=== PATIENT | male | born 1965 | race Two or more races ===

== ENCOUNTER 2016-11-11 11:31 | Inpatient (IN) | payer MEDICARE, MEDICAID ==
[~2016-11-11] VITALS: Ht 165.1 cm; Wt 61.2 kg
[~2016-11-11 11:31] MED LIST: ACETAMINOPHEN-1 EAC2 ORAL; ACETAMINOPHEN325 M1 ORAL; AUGMENTIN 875-1 EAC1 ORAL; BACTRIM DS TAB1 EAC1 ORAL; CEFAZOLIN2 GM/20 ML IV; CEPHALEXIN500 MG ORAL; FLAGYL500 MG ORAL; LEVEMIR FL100 UNIT/1 SUBQ; LIPITOR10 MG ORAL; LIPITOR20 MG ORAL; MIRALAX17 G2 ORAL; NORCO 5-325 TA1 EACH ORAL; NOVOLIN 70/305 UNIT1 SUBQ; NOVOLOG100 UNITS1; RESTORIL15 MG ORAL; RIFAMPIN150 MG ORAL; ROCEPHIN250 MG IV
[2016-11-11 11:40] VITALS: BP 116/77
[2016-11-11] MEDS ORDERED: Clindamycin 600mg 50 ML IVPB ONE (12:00)
[2016-11-11 12:27] LABS: BASOPHILS % (AUTO) 1.5 % (0.0-2.0); EOSINOPHILS % (AUTO) 1.3 % (0.0-3.0); MEAN CORPUSCULAR HEMOGLOBIN 29.9 PG (27.0-31.0); MEAN CORPUSCULAR HGB CONC 32.1 G/DL (32.0-36.0); MEAN CORPUSCULAR VOLUME 93 FL (80-99); MEAN PLATELET VOLUME 6.8 FL (6.5-10.1); MONOCYTES % (AUTO) 8.4 % (1.0-10.0); NEUTROPHILS % (AUTO) 70.7 % (45.0-75.0); PLATELET COUNT 238 K/UL (150-450); RED BLOOD COUNT 3.53 M/UL (4.70-6.10); RED CELL DISTRIBUTION WIDTH 12.4 % (11.6-14.8); WHITE BLOOD COUNT 7.2 K/UL (4.8-10.8)
--- NOTE | 2016-11-11 12:30 | Emergency Room Report ---
History of Present Illness General Chief Complaint: Skin Rash/Abscess Source: Patient Present Illness HPI Patient presents with complaints of redness and infection to the right foot Patient is a diabetic and has had previous intervention Including podiatry and surgery He felt the area increasing with pain 8/10 Patient also reports fevers over the past night Denies any chest pain or shortness of breath denies any back or flank pain denies any dysuria frequency Pain is worse with ambulation Allergies: Coded Allergies: VANCOMYCIN (Verified Allergy, Unknown, 11/12/16) Patient History Past Medical History: see triage record Pertinent Family History: none Reviewed Nursing Documentation: PMH: Agreed, PSxH: Agreed Nursing Documentation-PMH Past Medical History: No History, Except For Hx Cardiac Problems: Yes - high cholesterol Hx Pacemaker: No - RT FOOT ULCER Hx Diabetes: Yes Hx Cancer: No Hx Gastrointestinal Problems: Yes Hx Neurological Problems: No Hx Headaches: Yes Review of Systems All Other Systems: negative except mentioned in HPI Physical Exam Vital Signs Date Time Temp Pulse Resp B/P Pulse Ox O2 Delivery O2 Flow Rate FiO2 11/11/16 11:35 98.1 83 15 139/89 98 Room Air Sp02 EP Interpretation: reviewed, normal General Appearance: well appearing, no apparent distress Head: normocephalic, atraumatic Eyes: bilateral eye EOMI, bilateral eye PERRL ENT: hearing grossly normal, normal pharynx, TMs + canals normal, uvula midline Neck: full range of motion, supple, no meningismus, no bony tend Respiratory: lungs clear, normal breath sounds, no rhonchi, no respiratory distress, no retraction, no accessory muscle use Cardiovascular #1: normal peripheral pulses, regular rate, rhythm, no edema, no gallop, no JVD, no murmur Gastrointestinal: normal bowel sounds, non tender, soft, no mass, no organomegaly, non-distended, no guarding, no hernia, no pulsatile mass, no rebound Genitourinary: no CVA tenderness Musculoskeletal: other - Erythema and fluctuance in the right outside part of the foot no obvious open wound however there was some minimal discharge noted, patient is neurovascularly intact, Neurologic: oriented x3, responsive, synthetic cloth binding cutter III-XII nml as tested, motor strength/ tone normal, sensory intact Psychiatric: mood/affect normal Skin: other - As above Lymphatic: normal inspection, no adenopathy Medical Decision Making Diagnostic Impression: Primary Impression: Hyperglycemia Additional Impressions: Diabetic foot ulcer Poorly controlled diabetes mellitus ER Course Given the patient's history examined the presentation given the concerning findings of the foot and the patient's history of diabetes extensive blood work was initiated Patient had IV antibiotics provided IV hydration And requires admission for further care Labs Test 11/11/16 12:10 11/11/16 13:10 White Blood Count 7.2 K/UL (4.8-10.8) Red Blood Count 3.53 M/UL (4.70-6.10) Hemoglobin 10.6 G/DL (14.2-18.0) Hematocrit 32.9 % (42.0-52.0) Mean Corpuscular Volume 93 FL (80-99) Mean Corpuscular Hemoglobin 29.9 PG (27.0-31.0) Mean Corpuscular Hemoglobin Concent 32.1 G/DL (32.0-36.0) Red Cell Distribution Width 12.4 % (11.6-14.8) Platelet Count 238 K/UL (150-450) Mean Platelet Volume 6.8 FL (6.5-10.1) Neutrophils (%) (Auto) 70.7 % (45.0-75.0) Lymphocytes (%) (Auto) 18.0 % (20.0-45.0) Monocytes (%) (Auto) 8.4 % (1.0-10.0) Eosinophils (%) (Auto) 1.3 % (0.0-3.0) Basophils (%) (Auto) 1.5 % (0.0-2.0) Sodium Level 130 mEQ/L (135-145) Potassium Level 4.6 mEQ/L (3.4-4.9) Chloride Level 90 mEQ/L (98-107) Carbon Dioxide Level 22 mEQ/L (20-30) Anion Gap 18 (5-15) Blood Urea Nitrogen 35 mg/dL (7-23) Creatinine 2.3 mg/dL (0.7-1.2) Estimat Glomerular Filtration Rate 30.0 mL/min (>60) Glucose Level 536 mg/dL (74-106) Lactic Acid Level 2.00 mmol/L (0.66-2.22) 1.90 mmol/L (0.66-2.22) Calcium Level 10.1 mg/dL (8.6-10.2) Total Bilirubin 0.6 mg/dL (0.0-1.2) Aspartate Amino Transf (AST/SGOT) 19 U/L (5-40) Alanine Aminotransferase (ALT/SGPT) 19 U/L (3-41) Alkaline Phosphatase 140 U/L (40-129) Total Creatine Kinase 115 U/L (38-174) Creatine Kinase MB 2.2 ng/mL (< 6.7) Creatine Kinase MB Relative Index 1.9 Total Protein 8.3 g/dL (6.6-8.7) Albumin 4.6 g/dL (3.5-5.2) Globulin 3.7 g/dL Albumin/Globulin Ratio 1.2 (1.0-2.7) Rhythm Strip Diag. Results EP Interpretation: yes Rate: 88 Rhythm: NSR, no PVC's, no ectopy Other X-Ray Diagnostic Results Other X-Ray Diagnostic Results : EP Interpretation: Yes Findings: no fractures, no dislocation, other - Soft tissue changes, severe arthritic changes to the surgery no obvious evidence of osteomylitis Number of Views: 2 - right foot Last Vital Signs Date Time Temp Pulse Resp B/P Pulse Ox O2 Delivery O2 Flow Rate FiO2 11/11/16 11:40 98.0 86 13 116/77 100 Room Air Status: improved Disposition: ADMITTED INPATIENT Condition: Serious Referrals: NON PHYSICIAN (PCP) DION MONROY D.O. Nov 11, 2016 12:30
[2016-11-11 12:35] LABS: ALBUMIN/GLOBULIN RATIO 1.2 (1.0-2.7); CALCIUM 10.1 mg/dL (8.6-10.2); CREATININE 2.3 mg/dL (0.7-1.2); POTASSIUM 4.6 mEQ/L (3.4-4.9); TOTAL PROTEIN 8.3 g/dL (6.6-8.7)
[2016-11-11 12:37] LABS: REFLEX LACTIC ACID YES OR NO YES
[2016-11-11 12:45] LABS: CKMB 2.2 ng/mL (< 6.7)
[2016-11-11] MEDS ORDERED: NOVOLIN 70100 UNIT/1 SUBQ ×2 (13:04)
[2016-11-11 13:15] VITALS: BP 87/63
[2016-11-11] MEDS ORDERED: Morphine Sulfate 2mg/ml Inj IVP ONE (13:30)
[2016-11-11] MEDS ORDERED: Mylanta II UD 30ml ORAL PRN (13:30)
[2016-11-11] MEDS ORDERED: LORazepam Inj 2mg/ml 1ml IV PRN (13:30)
[2016-11-11 14:01] VITALS: BP 99/65
[2016-11-11 14:13] VITALS: BP 106/76
--- NOTE | 2016-11-11 14:41 | Diagnostic Imaging Report ---
Indication: No definite plain Technique: 3 or 4 views right foot Comparison: none Findings: Patient is status post amputation of the first digit at the level of the metatarsal neck. The second third and fourth digits are intact, although there is some remodeling of the base of the third proximal phalanx which may be degenerative in nature. Patient is status post osteotomy of the fifth metatarsal distally, with the phalanges still intact. The amputation margins appear clean. No acute fractures. No definite lesions, abnormal periosteal reaction, or osseous erosions. A medullary javier extends from the tibia through the talus and into the calcaneus. There is severe hammertoe deformity of the second third and fourth digits, which limits assessment, particularly of the second digit. Impression: Postsurgical changes, as described No definite plain radiographic findings to suggest acute osteomyelitis. Note, however, limited sensitivity of plain radiograph for such. Consider MRI or bone scan if there is a clinical suspicion No acute bony trauma
[2016-11-11 14:49] LABS: MAGNESIUM 1.9 mg/dL (1.7-2.5); URIC ACID 6.9 mg/dL (3.0-7.5)
[2016-11-11] MEDS: Cefepime HCl 1 GM in D5W 55 ML IV SCH (15:26)
--- NOTE | 2016-11-11 15:34 | History and Physical ---
History of Present Illness General Date patient seen: Nov 11, 2016 Reason for Hospitalization: Skin Rash/Abscess Present Illness HPI 51 year old male with hx of DM, HTN, diabetic foot ulcer with previous surgeries presented with complaints of redness and infection to the right foot Patient also reports fevers over the past night. The Pain is worse with ambulation Allergies: Coded Allergies: No Known Allergies (Verified , 04/05/09) Medication History Scheduled Amoxicillin/Potassium Clav 875-125* (Augmentin 875-125 Tablet*), 1 TAB ORAL TWICE A DAY, (Reported) Atorvastatin Calcium* (Lipitor*), 20 MG ORAL QHS Ceftriaxone Sod (Rocephin), 2 GM IV DAILY Hum Insulin Nph/Reg Insulin Hm (Novolin 70-30 100 Unit/Ml Vial), 15 UNITS SUBQ DAILY, (Reported) Hum Insulin Nph/Reg Insulin Hm (Novolin 70-30 100 Unit/Ml Vial), 10 UNITS SUBQ BEDTIME, (Reported) Insulin Aspart (Novolog Flexpen), 7 ACHS, (Reported) Insulin Detemir (Levemir Flexpen), 24 SUBQ DAILY, (Reported) Insulin Detemir (Levemir Flexpen), 9 UNITS SUBQ QHS Insulin Human Isophan/Regular (Humulin 70-30 Vial), 20 UNITS SUBQ BEFORE BREAKFAST, (Reported) Insulin Human Isophan/Regular (Humulin 70-30 Vial), 10 UNITS SUBQ QPM, (Reported ) Metronidazole* (Flagyl*), 500 MG ORAL THREE TIMES A DAY, (Reported) Rifampin (Rifampin), 300 MG ORAL EVERY 12 HOURS Trimethoprim/Sulfamethoxazole 160/800* (Bactrim Ds Tablet*), 1 TAB ORAL TWICE A DAY Scheduled PRN Acetaminophen With Codeine (T#4) (Tylenol #4 Tab*), 1 TAB ORAL Q6H PRN for For Pain Patient History Healthcare decision maker Resuscitation status Advanced Directive on File Past Medical/Surgical History Past Medical/Surgical History: (1) Sepsis (2) Cellulitis in diabetic foot (3) Diabetic nephropathy (4) Renal insufficiency Review of Systems Constitutional: Reports: fever All Other Systems: negative except mentioned in HPI Physical Exam General Appearance: WD/WN, no apparent distress Lines, tubes and drains: peripheral, central line Neck: non-tender, normal alignment Respiratory/Chest: chest wall non-tender, lungs clear Cardiovascular/Chest: normal peripheral pulses, normal rate, no JVD Abdomen: normal bowel sounds Genitourinary/Rectal: normal genital exam Extremities: normal range of motion Skin Exam: normal pigmentation Last 24 Hour Vital Signs Date Time Temp Pulse Resp B/P Pulse Ox O2 Delivery O2 Flow Rate FiO2 11/11/16 14:28 80 12 107/73 100 Room Air 11/11/16 14:13 80 12 106/76 100 Room Air 11/11/16 14:01 79 12 99/65 100 Room Air 11/11/16 13:15 79 12 87/63 99 Room Air 11/11/16 11:40 98.0 86 13 116/77 100 Room Air 11/11/16 11:35 98.1 83 15 139/89 98 Room Air Laboratory Tests Test 11/11/16 12:10 11/11/16 13:10 White Blood Count 7.2 K/UL (4.8-10.8) Red Blood Count 3.53 M/UL (4.70-6.10) L Hemoglobin 10.6 G/DL (14.2-18.0) L Hematocrit 32.9 % (42.0-52.0) L Mean Corpuscular Volume 93 FL (80-99) Mean Corpuscular Hemoglobin 29.9 PG (27.0-31.0) Mean Corpuscular Hemoglobin Concent 32.1 G/DL (32.0-36.0) Red Cell Distribution Width 12.4 % (11.6-14.8) Platelet Count 238 K/UL (150-450) Mean Platelet Volume 6.8 FL (6.5-10.1) Neutrophils (%) (Auto) 70.7 % (45.0-75.0) Lymphocytes (%) (Auto) 18.0 % (20.0-45.0) L Monocytes (%) (Auto) 8.4 % (1.0-10.0) Eosinophils (%) (Auto) 1.3 % (0.0-3.0) Basophils (%) (Auto) 1.5 % (0.0-2.0) Sodium Level 130 mEQ/L (135-145) L Potassium Level 4.6 mEQ/L (3.4-4.9) Chloride Level 90 mEQ/L (98-107) L Carbon Dioxide Level 22 mEQ/L (20-30) Anion Gap 18 (5-15) H Blood Urea Nitrogen 35 mg/dL (7-23) H Creatinine 2.3 mg/dL (0.7-1.2) H Estimat Glomerular Filtration Rate 30.0 mL/min (>60) Glucose Level 536 mg/dL (74-106) *H Lactic Acid Level 2.00 mmol/L (0.66-2.22) 1.90 mmol/L (0.66-2.22) Uric Acid 6.9 mg/dL (3.0-7.5) Calcium Level 10.1 mg/dL (8.6-10.2) Phosphorus Level 4.0 mg/dL (2.5-4.8) Magnesium Level 1.9 mg/dL (1.7-2.5) Total Bilirubin 0.6 mg/dL (0.0-1.2) Aspartate Amino Transf (AST/SGOT) 19 U/L (5-40) Alanine Aminotransferase (ALT/SGPT) 19 U/L (3-41) Alkaline Phosphatase 140 U/L (40-129) H Total Creatine Kinase 115 U/L (38-174) Creatine Kinase MB 2.2 ng/mL (< 6.7) Creatine Kinase MB Relative Index 1.9 Total Protein 8.3 g/dL (6.6-8.7) Albumin 4.6 g/dL (3.5-5.2) Globulin 3.7 g/dL Albumin/Globulin Ratio 1.2 (1.0-2.7) Free Thyroxine 1.25 ng/dL (0.86-1.85) Height (Feet): 5 Height (Inches): 5.00 Weight (Pounds): 135 Medications Current Medications Medications (Trade) Dose Ordered Sig/Julian Route PRN Reason Start Time Stop Time Status Last Admin Dose Admin Acetaminophen (Tylenol) 650 mg Q4H PRN ORAL T>100.5 11/11/16 13:30 12/11/16 13:29 Al Hydroxide/Mg Hydroxide (Mylanta II) 30 ml Q6H PRN ORAL dyspepsia 11/11/16 13:30 12/11/16 13:29 Atorvastatin Calcium (Lipitor) 20 mg BEDTIME ORAL 11/11/16 21:00 12/11/16 20:59 Cefepime HCl/ Dextrose (Maxipime/D5W) 55 ml @ 110 mls/hr Q24H IV 11/11/16 15:00 11/18/16 14:59 Dextrose STAT PRN IV Hypoglycemia 11/11/16 13:30 12/11/16 13:29 Heparin Sodium (Porcine) (Heparin 5000 units/ml) 5,000 units EVERY 12 HOURS SUBQ 11/11/16 21:00 12/11/16 20:59 Insulin Aspart (NovoLOG) BEFORE MEALS AND HS SUBQ 11/11/16 16:30 12/11/16 16:29 Lorazepam (Ativan 2mg/ml 1ml) 0.5 mg Q4H PRN IV For Anxiety 11/11/16 13:30 11/18/16 13:29 Metronidazole (Flagyl) 500 mg Q8HR ORAL 11/11/16 14:00 11/18/16 13:59 Morphine Sulfate (Morphine Sulfate) 1 mg Q4H PRN IVP PAIN 4-10 11/11/16 13:30 11/18/16 13:29 Ondansetron HCl (Zofran) 4 mg Q6H PRN IVP Nausea & Vomiting 11/11/16 13:30 12/11/16 13:29 Polyethylene Glycol (Miralax) 17 gm HSPRN PRN ORAL Constipation 11/11/16 21:00 12/11/16 20:59 Rifampin (Rifadin) 300 mg EVERY 12 HOURS ORAL 11/11/16 21:00 12/11/16 20:59 Vancomycin HCl 1 ea 1 ea DAILY PRN MISC Per rx protocol 11/11/16 13:30 12/11/16 13:29 Vancomycin HCl/ Dextrose (Vancomycin/D5W) 275 ml @ 183.333 mls/hr ONCE ONCE IVPB 11/11/16 16:00 11/11/16 17:29 Zolpidem Tartrate (Ambien) 5 mg HSPRN PRN ORAL Insomnia 11/11/16 21:00 12/11/16 20:59 Assessment/Plan Problem List: (1) Sepsis ICD Codes: A41.9 - Sepsis SNOMED: 06254971 (2) Cellulitis in diabetic foot ICD Codes: E13.628 - Cellulitis in diabetic foot; L03.119 - Cellulitis of unspecified part of limb SNOMED: 23660983 (3) Diabetic nephropathy ICD Codes: E11.29 - Diabetic nephropathy SNOMED: 018179222 Assessment/Plan IV antibiotics Podiatry consult ID consult abx sliding scale diabetic diet PAM QUEEN Nov 11, 2016 15:34
[2016-11-11] MEDS ORDERED: Vancomycin 1250mg/D5W 275ml IVPB ONE ×2 (16:00)
[2016-11-11 16:15] VITALS: BP 100/71
[2016-11-11] MEDS: NovoLOG Insulin Flexpen SUBQ SCH ×2 (16:38→22:31)
--- NOTE | 2016-11-11 16:43 | Diagnostic Imaging Report ---
Indication: Abnormal renal function tests Technique: Grayscale and duplex images of the kidneys, retroperitoneum, and bladder were obtained. Comparison:03/10/2016 Findings: Right kidney measures 9.7 cm in length. Left kidney measures 10.1 cm in length. Both kidneys demonstrate normal echogenicity. No hydronephrosis. No focal abnormality. Normal inferior vena cava. Bladder is normal. No significant interim change Impression: negative.
[2016-11-11] MEDS: metroNIDAZOLE 500mg tab ORAL SCH ×2 (16:59→22:26)
--- NOTE | 2016-11-11 17:33 | Consultation ---
Consult Note Assessment/Plan Id Dic # [id number] ASSESSMENT: 51 y/o male with: // Recurrent right foot DFU / osteomyelitis SP I& D podiatry, hx of WCx MSSA, GFS, ( Yeast :Colonizer ). 3P bone scan: acute osteomyelitis involving the area of the fifth metatarsal head. // Hx of MSSA bacteremia due Rt ankle abscess ( clinically no evidence of infection ) - h/o ORIF // Afebrile without leukocytosis // h/o possible splenic vein thrombosis // TOMASZ - resolved // Uncontrolled DM - HbA1c 10.4% // Elevated CRP // Bilateral non-obstructive nephrolithiasis // ? Allergy to Vanco ( pt has sever itching ) // Full Code PLAN: - Cont on Cefepime, Dapto d# 1. - weekly CBC, CMP, ESR, CRP while on IV ABX - PICC line before DC - f/u final cultures ( Bl, Wnd ) - monitor CBC, temperatures - monitor BMP - wound care, HBO CHATO ROGERS M.D. Nov 11, 2016 17:32
--- NOTE | 2016-11-11 19:01 | Consultation ---
Consult Note Consult Note PODIATRY CONSULT DATE: 11/11/16 COVERING FOR: Willy Arreola DPM REASON FOR CONSULT: Right foot wound HISTORY OF PRESENT ILLNESS: Patient states that he noticed some drainage on his sock one day ago and presented to the emergency room. Patient states no nausea, vomiting, fevers, or chills prior to admission. However, he states he was given a medication today that caused vomiting. He uses custom diabetic shoes. PAST MEDICAL HISTORY: CKD, T2DM with peripheral neuropathy, HTN SOCIAL HISTORY: Denies tobacco and illicit leatha use. Reports occasional alcohol use FAMILY HISTORY: Non contributory SURGICAL HISTORY: Right hallux amputation and right 5th metatarsal head resection Allergies: Coded Allergies: No Known Allergies (Verified , 04/05/09) Objective Objective Exam Last 24 Hour Vital Signs Date Time Temp Pulse Resp B/P Pulse Ox O2 Delivery O2 Flow Rate FiO2 11/11/16 16:15 98.4 84 21 100/71 97 Room Air 11/11/16 14:28 80 12 107/73 100 Room Air 11/11/16 14:13 80 12 106/76 100 Room Air 11/11/16 14:01 79 12 99/65 100 Room Air 11/11/16 13:15 79 12 87/63 99 Room Air 11/11/16 11:40 98.0 86 13 116/77 100 Room Air 11/11/16 11:35 98.1 83 15 139/89 98 Room Air Laboratory Tests Test 11/11/16 12:10 11/11/16 13:10 11/11/16 18:00 White Blood Count 7.2 K/UL (4.8-10.8) Red Blood Count 3.53 M/UL (4.70-6.10) L Hemoglobin 10.6 G/DL (14.2-18.0) L Hematocrit 32.9 % (42.0-52.0) L Mean Corpuscular Volume 93 FL (80-99) Mean Corpuscular Hemoglobin 29.9 PG (27.0-31.0) Mean Corpuscular Hemoglobin Concent 32.1 G/DL (32.0-36.0) Red Cell Distribution Width 12.4 % (11.6-14.8) Platelet Count 238 K/UL (150-450) Mean Platelet Volume 6.8 FL (6.5-10.1) Neutrophils (%) (Auto) 70.7 % (45.0-75.0) Lymphocytes (%) (Auto) 18.0 % (20.0-45.0) L Monocytes (%) (Auto) 8.4 % (1.0-10.0) Eosinophils (%) (Auto) 1.3 % (0.0-3.0) Basophils (%) (Auto) 1.5 % (0.0-2.0) Sodium Level 130 mEQ/L (135-145) L Potassium Level 4.6 mEQ/L (3.4-4.9) Chloride Level 90 mEQ/L (98-107) L Carbon Dioxide Level 22 mEQ/L (20-30) Anion Gap 18 (5-15) H Blood Urea Nitrogen 35 mg/dL (7-23) H Creatinine 2.3 mg/dL (0.7-1.2) H Estimat Glomerular Filtration Rate 30.0 mL/min (>60) Glucose Level 536 mg/dL (74-106) *H Lactic Acid Level 2.00 mmol/L (0.66-2.22) 1.90 mmol/L (0.66-2.22) Uric Acid 6.9 mg/dL (3.0-7.5) Calcium Level 10.1 mg/dL (8.6-10.2) Phosphorus Level 4.0 mg/dL (2.5-4.8) Magnesium Level 1.9 mg/dL (1.7-2.5) Total Bilirubin 0.6 mg/dL (0.0-1.2) Aspartate Amino Transf (AST/SGOT) 19 U/L (5-40) Alanine Aminotransferase (ALT/SGPT) 19 U/L (3-41) Alkaline Phosphatase 140 U/L (40-129) H Total Creatine Kinase 115 U/L (38-174) Creatine Kinase MB 2.2 ng/mL (< 6.7) Creatine Kinase MB Relative Index 1.9 Total Protein 8.3 g/dL (6.6-8.7) Albumin 4.6 g/dL (3.5-5.2) Globulin 3.7 g/dL Albumin/Globulin Ratio 1.2 (1.0-2.7) Free Thyroxine 1.25 ng/dL (0.86-1.85) Plasma/Serum Osmolality Pending Free Triiodothyronine Pending Cortisol Pending PHYSICAL EXAM: DERM: Abscess noted right plantar foot at the base of the 5th metatarsal NEURO: Decreased sensation to light touch VASC: Pedal pulses lightly palpable MSK: Right hallux amputation with hammertoes 2-5 bilaterally. Bunion deformity left foot IMAGING: Procedure: XRAY Foot Complete R Indication: No definite plain Technique: 3 or 4 views right foot Comparison: none Findings: Patient is status post amputation of the first digit at the level of the metatarsal neck. The second third and fourth digits are intact, although there is some remodeling of the base of the third proximal phalanx which may be degenerative in nature. Patient is status post osteotomy of the fifth metatarsal distally, with the phalanges still intact. The amputation margins appear clean. No acute fractures. No definite lesions, abnormal periosteal reaction, or osseous erosions. A medullary javier extends from the tibia through the talus and into the calcaneus. There is severe hammertoe deformity of the second third and fourth digits, which limits assessment, particularly of the second digit. Impression: Postsurgical changes, as described No definite plain radiographic findings to suggest acute osteomyelitis. Note, however, limited sensitivity of plain radiograph for such. Consider MRI or bone scan if there is a clinical suspicion No acute bony trauma . Assessment/Plan - RIGHT FOOT ABSCESS. Consent was obtained and an I&D was performed. The drainage was cultured. The wound was noted to be partial thickness and did not probe to bone. Dressing was applied. Continue daily dressing change - PERIPHERAL NEUROPATHY. Patient was educated about neuropathic foot care. Instructed patient that his custom diabetic shoes and inserts will need to be modified to offload the area of ulceration - POORLY CONTROLLED DIABETES. Patient to continue to work with primary care physician to improve glucose management Joaquin Pastrana DPM Nov 11, 2016 19:01
[2016-11-11 20:00] VITALS: BP 120/83
[2016-11-11] MEDS ORDERED: Miralax 17gm pkt ORAL PRN (21:00)
[2016-11-11] MEDS: Atorvastatin 20mg tab ORAL SCH (21:00)
[2016-11-11] MEDS ORDERED: Zolpidem 5mg tab ORAL PRN (21:00)
[2016-11-11] MEDS: DAPTOmycin 350 MG in NS 55 ML IV SCH (22:27)
[2016-11-11] MEDS: Heparin 5000 units/ml inj SUBQ SCH (22:30)
[2016-11-11] MEDS: Morphine Sulfate 2mg/ml Inj IVP PRN (22:31)
[2016-11-12] VITALS (7 sets, daily range): BP systolic 73–126; BP diastolic 47–83
[2016-11-12 00:55] LABS: APPEARANCE,URINE CLEAR; KETONES,URINE NEGATIVE (NEGATIVE); LEUKOCYTE ESTERASE ,URINE NEGATIVE (NEGATIVE); NITRITE,URINE NEGATIVE (NEGATIVE); PH,URINE 5 (4.5-8.0); PROTEIN,URINE 3+ (NEGATIVE); UROBILINOGEN,URINE NORMAL MG/DL (0.0-1.0)
[2016-11-12 01:14] LABS: BACTERIA,URINE FEW /HPF; WBC,URINE 0 /HPF (0 - 0)
--- NOTE | 2016-11-12 03:28 | Consultation ---
DATE OF CONSULTATION: INFECTIOUS DISEASE CONSULTATION: REFERRING PHYSICIAN: Harvinder Campos M.D. REASON FOR CONSULTATION: Evaluation of patient for right foot infection, osteomyelitis, and antibiotic management. HISTORY OF PRESENT ILLNESS: The patient is a 51-year-old male with multiple medical problems as listed below, who was admitted recently to this medical center and was found to have osteomyelitis of right foot and the patient was discharged on IV Rocephin and rifampin for total of six weeks. At that time, the patient did not have of the foot and now the patient has been right foot abscess underwent debridement. Infectious Disease consultation requested for further evaluation of the patient's antibiotic management. PAST MEDICAL HISTORY: Significant for , 1. Recurrent right foot osteomyelitis. 2. History of recent bacteremia. 3. History of acute renal failure/CKD. 4. Diabetes. 5. nephrolithiasis. MEDICATIONS: Rifampin, cefepime, and vancomycin. ALLERGIES: No known drug allergies. SOCIAL HISTORY: No history of alcohol or drug abuse. FAMILY HISTORY: Noncontributory. LABORATORY AND DIAGNOSTIC DATA: WBC 7, hemoglobin 10, and platelets 238,000. BUN 35 and creatinine 2.3. AST and alkaline phosphatase unremarkable. Alkaline phosphatase of 140. Wound culture is pending. ASSESSMENT: The patient is a 51-year-old male with multiple medical problems who has been admitted to this medical center. The patient was found to have wound infection most likely due to osteomyelitis. The patient would benefit from total six weeks of antibiotic treatment. I will cover the patient with broad-spectrum antibiotics until we get further information from the cultures. PLAN: 1. We will cover the patient on vancomycin and cefepime. We will hold rifampin. 2. Monitor CBC. 3. Monitor BMP. 4. Monitor cultures (urine and blood). 5. Monitor the patient's ESR and CRP. 6. Based on patient's clinical course and labs, we will do further recommendation. Thank you, Dr. Campos, for allowing me to participate in the care of this patient. I will follow the patient with you during this hospitalization Leo Hansen M.D. DR: Fabrice JOB#: [id number] CC:
[2016-11-12] MEDS: metroNIDAZOLE 500mg tab ORAL SCH ×3 (06:09→21:19)
[2016-11-12] MEDS: NovoLOG Insulin Flexpen SUBQ SCH ×6 (06:10→21:00)
[2016-11-12 07:29] LABS: BASOPHILS % (AUTO) 1.2 % (0.0-2.0); EOSINOPHILS % (AUTO) 1.9 % (0.0-3.0); LYMPHOCYTES % (AUTO) 26.5 % (20.0-45.0); MEAN CORPUSCULAR HEMOGLOBIN 30.6 PG (27.0-31.0); MEAN CORPUSCULAR HGB CONC 33.3 G/DL (32.0-36.0); MEAN CORPUSCULAR VOLUME 92 FL (80-99); MEAN PLATELET VOLUME 6.4 FL (6.5-10.1); MONOCYTES % (AUTO) 7.1 % (1.0-10.0); NEUTROPHILS % (AUTO) 63.4 % (45.0-75.0); PLATELET COUNT 226 K/UL (150-450); RED BLOOD COUNT 3.15 M/UL (4.70-6.10); RED CELL DISTRIBUTION WIDTH 12.2 % (11.6-14.8); WHITE BLOOD COUNT 6.1 K/UL (4.8-10.8)
[2016-11-12 08:08] LABS: CORTISOL LC 14.3 ug/dL (.); FREE TRIIODOTHYRONINE 1.8 pg/mL (2.0-4.4)
[2016-11-12 08:20] LABS: HEMOGLOBIN A1C 8.5 % (< 6.0)
[2016-11-12 08:26] LABS: ALBUMIN/GLOBULIN RATIO 1.1 (1.0-2.7); CALCIUM 9.5 mg/dL (8.6-10.2); CHOLESTEROL/HDL RATIO 2.9 (3.3-4.4); CREATININE 1.7 mg/dL (0.7-1.2); GLOMERULAR FILTRATION RATE 42.5 mL/min (>60); POTASSIUM 4.1 mEQ/L (3.4-4.9); TOTAL PROTEIN 7.1 g/dL (6.6-8.7)
[2016-11-12] MEDS: Heparin 5000 units/ml inj SUBQ SCH ×3 (08:42→21:24)
[2016-11-12 08:46] LABS: THYROID STIMULATING HORMONE 2.12 uIU/mL (0.300-4.500)
[2016-11-12] MEDS: Levemir Flexpen SUBQ SCH (10:20)
[2016-11-12] MEDS ORDERED: Tubing IV Secondary IV ONE (14:50)
[2016-11-12] MEDS ORDERED: NS 275ml ONE (14:50)
[2016-11-12] MEDS: Cefepime HCl 1 GM in D5W 55 ML IV SCH (15:48)
--- NOTE | 2016-11-12 18:05 | Podiatric Progress Note ---
Assessment/Plan Patient Dougie Toure is a 51 year old male who was admitted on Nov 11, 2016 at 12: 13 with right foot ulcer Problems: (1) Cellulitis of right foot (2) Diabetic foot ulcer (3) Diabetic nephropathy (4) Acquired absence of right great toe Assessment/Plan 1 day status post I&D. Wound cultures obtained yesterday. Foot xray is negative for osteo and wound does not probe to bone. No leukocytosis and patient remains afebrile. Currently no surrounding cellulitis. Patient is stable enough for discharge from podiatry standpoint with oral antibiotics per infectious disease specialist recs. Can adjust antibiotics as an outpatient based on final wound culture results. Will follow up at [facility] weekly until healed. Subjective Procedure Performed 1 Day status post right foot I&D Allergies: Coded Allergies: VANCOMYCIN (Verified Allergy, Unknown, 11/12/16) Subjective Patient states he is feeling well. No pain, nausea, vomiting, fevers, chills, or shortness of breath. Objective Exam Last 24 Hour Vital Signs Date Time Temp Pulse Resp B/P Pulse Ox O2 Delivery O2 Flow Rate FiO2 11/12/16 16:00 97.9 88 20 119/83 99 Room Air 11/12/16 12:00 98.1 80 18 107/74 98 Room Air 11/12/16 08:00 97.9 79 18 92/68 98 Room Air 11/12/16 04:00 97.9 72 20 109/74 99 Room Air 11/12/16 01:05 85 111/76 11/12/16 00:00 98.2 71 18 73/47 99 Room Air 11/11/16 23:01 98.4 11/11/16 20:00 98.1 87 20 120/83 97 Room Air Laboratory Tests Test 11/11/16 18:00 11/11/16 21:00 11/12/16 05:20 Plasma/Serum Osmolality Pending Free Triiodothyronine 1.8 pg/mL (2.0-4.4) L Cortisol 14.3 ug/dL (.) Urine Color Yellow Urine Appearance Clear Urine pH 5 (4.5-8.0) Urine Specific [place] 1.020 (1.005-1.035) Urine Protein 3+ (NEGATIVE) H Urine Glucose (UA) 4+ (NEGATIVE) H Urine Ketones Negative (NEGATIVE) Urine Occult Blood 2+ (NEGATIVE) H Urine Nitrite Negative (NEGATIVE) Urine Bilirubin Negative (NEGATIVE) Urine Urobilinogen Normal MG/DL (0.0-1.0) Urine Leukocyte Esterase Negative (NEGATIVE) Urine RBC 2-4 /HPF (0 - 0) H Urine WBC 0 /HPF (0 - 0) Urine Squamous Epithelial Cells None /LPF (NONE/OCC) Urine Bacteria Few /HPF (NONE) Urine Eosinophils None seen Urine Osmolality Pending Urine Random Sodium 25 mmol/L Urine Random Chloride 46 mmol/L Urine Potassium Timed 50 mmol/L White Blood Count 6.1 K/UL (4.8-10.8) Red Blood Count 3.15 M/UL (4.70-6.10) L Hemoglobin 9.6 G/DL (14.2-18.0) L Hematocrit 28.9 % (42.0-52.0) L Mean Corpuscular Volume 92 FL (80-99) Mean Corpuscular Hemoglobin 30.6 PG (27.0-31.0) Mean Corpuscular Hemoglobin Concent 33.3 G/DL (32.0-36.0) Red Cell Distribution Width 12.2 % (11.6-14.8) Platelet Count 226 K/UL (150-450) Mean Platelet Volume 6.4 FL (6.5-10.1) L Neutrophils (%) (Auto) 63.4 % (45.0-75.0) Lymphocytes (%) (Auto) 26.5 % (20.0-45.0) Monocytes (%) (Auto) 7.1 % (1.0-10.0) Eosinophils (%) (Auto) 1.9 % (0.0-3.0) Basophils (%) (Auto) 1.2 % (0.0-2.0) Sodium Level 137 mEQ/L (135-145) Potassium Level 4.1 mEQ/L (3.4-4.9) Chloride Level 100 mEQ/L (98-107) Carbon Dioxide Level 23 mEQ/L (20-30) Anion Gap 14 (5-15) Blood Urea Nitrogen 30 mg/dL (7-23) H Creatinine 1.7 mg/dL (0.7-1.2) H Estimat Glomerular Filtration Rate 42.5 mL/min (>60) Glucose Level 240 mg/dL (74-106) #H Hemoglobin A1c 8.5 % (< 6.0) H Calcium Level 9.5 mg/dL (8.6-10.2) Total Bilirubin 0.2 mg/dL (0.0-1.2) Aspartate Amino Transf (AST/SGOT) 16 U/L (5-40) Alanine Aminotransferase (ALT/SGPT) 14 U/L (3-41) Alkaline Phosphatase 94 U/L (40-129) C-Reactive Protein, Quantitative 8.1 mg/dL (< 0.5) H Total Protein 7.1 g/dL (6.6-8.7) Albumin 3.8 g/dL (3.5-5.2) Globulin 3.3 g/dL Albumin/Globulin Ratio 1.1 (1.0-2.7) Triglycerides Level 229 mg/dL (< 150) H Cholesterol Level 182 mg/dL (< 200) LDL Cholesterol 74 mg/dL (60-99) HDL Cholesterol 62 mg/dL (> 60) H Cholesterol/HDL Ratio 2.9 (3.3-4.4) L Thyroid Stimulating Hormone (TSH) 2.120 uIU/mL (0.300-4.500) Microbiology Date/Time Source Procedure Growth Status 11/11/16 18:30 Wound Gram Stain - Final Resulted 11/11/16 18:30 Wound Wound Culture Pending Resulted Exam Narrative Right plantar foot ulcer with no purulence or malodor. No surrounding cellulitis. Wound does not probe to bone. Joaquin Pastrana DPM Nov 12, 2016 18:04
--- NOTE | 2016-11-12 18:49 | Pulmonology Progress Note ---
Assessment/Plan Problems: (1) Sepsis (2) Cellulitis in diabetic foot (3) Diabetic nephropathy (4) Acquired absence of right great toe (5) Cellulitis of right foot (6) Iron deficiency anemia Assessment/Plan wound care IV antibiotics check cultures sliding scale diabetic diet and teaching. Subjective ROS Limited/Unobtainable: No Interval Events: s/p drainage of the abscess of the foot Allergies: Coded Allergies: VANCOMYCIN (Verified Allergy, Unknown, 11/12/16) Objective Last 24 Hour Vital Signs Date Time Temp Pulse Resp B/P Pulse Ox O2 Delivery O2 Flow Rate FiO2 11/12/16 16:00 97.9 88 20 119/83 99 Room Air 11/12/16 12:00 98.1 80 18 107/74 98 Room Air 11/12/16 08:00 97.9 79 18 92/68 98 Room Air 11/12/16 04:00 97.9 72 20 109/74 99 Room Air 11/12/16 01:05 85 111/76 11/12/16 00:00 98.2 71 18 73/47 99 Room Air 11/11/16 23:01 98.4 11/11/16 20:00 98.1 87 20 120/83 97 Room Air Intake and Output 11/11/16 11/12/16 19:00 07:00 Intake Total 240 ml 55 ml Output Total 525 ml Balance 240 ml -470 ml Intake Oral 240 ml IV Total 55 ml Output Urine Total 525 ml General Appearance: WD/WN HEENT: normocephalic, atraumatic Respiratory/Chest: chest wall non-tender, lungs clear Cardiovascular: normal peripheral pulses, normal rate, regular rhythm Abdomen: normal bowel sounds, soft, non tender, no organomegaly Genitourinary: normal external genitalia Skin: no rash Neurologic/Psychiatric: septic tank servicer II-XII grossly normal, abnormal gait Lymphatic: no neck adenopathy Microbiology Date/Time Source Procedure Growth Status 11/11/16 18:30 Wound Gram Stain - Final Resulted 11/11/16 18:30 Wound Wound Culture Pending Resulted Laboratory Tests 11/11/16 21:00: Urine Color Yellow, Urine Appearance Clear, Urine pH 5, Urine Specific [place] 1.020, Urine Protein 3+H, Urine Glucose (UA) 4+H, Urine Ketones Negative, Urine Occult Blood 2+H, Urine Nitrite Negative, Urine Bilirubin Negative, Urine Urobilinogen Normal, Urine Leukocyte Esterase Negative, Urine RBC 2-4H, Urine WBC 0, Urine Squamous Epithelial Cells None, Urine Bacteria Few, Urine Eosinophils None seen, Urine Osmolality [Pending], Urine Random Sodium 25, Urine Random Chloride 46, Urine Potassium Timed 50 11/12/16 05:20: White Blood Count 6.1, Red Blood Count 3.15L, Hemoglobin 9.6L, Hematocrit 28.9L , Mean Corpuscular Volume 92, Mean Corpuscular Hemoglobin 30.6, Mean Corpuscular Hemoglobin Concent 33.3, Red Cell Distribution Width 12.2, Platelet Count 226, Mean Platelet Volume 6.4L, Neutrophils (%) (Auto) 63.4, Lymphocytes ( %) (Auto) 26.5, Monocytes (%) (Auto) 7.1, Eosinophils (%) (Auto) 1.9, Basophils (%) (Auto) 1.2, Sodium Level 137, Potassium Level 4.1, Chloride Level 100, Carbon Dioxide Level 23, Anion Gap 14, Blood Urea Nitrogen 30H, Creatinine 1.7H , Estimat Glomerular Filtration Rate 42.5, Glucose Level 240#H, Hemoglobin A1c 8.5H, Calcium Level 9.5, Total Bilirubin 0.2, Aspartate Amino Transf (AST/SGOT) 16, Alanine Aminotransferase (ALT/SGPT) 14, Alkaline Phosphatase 94, C-Reactive Protein, Quantitative 8.1H, Total Protein 7.1, Albumin 3.8, Globulin 3.3, Albumin/Globulin Ratio 1.1, Triglycerides Level 229H, Cholesterol Level 182, LDL Cholesterol 74, HDL Cholesterol 62H, Cholesterol/HDL Ratio 2.9L, Thyroid Stimulating Hormone (TSH) 2.120 Current Medications Medications (Trade) Dose Ordered Sig/Julian Route PRN Reason Start Time Stop Time Status Last Admin Dose Admin Acetaminophen (Tylenol) 650 mg Q4H PRN ORAL T>100.5 11/11/16 13:30 12/11/16 13:29 Al Hydroxide/Mg Hydroxide 30 ml 30 ml Q6H PRN ORAL dyspepsia 11/11/16 13:30 12/11/16 13:29 Atorvastatin Calcium (Lipitor) 20 mg BEDTIME ORAL 11/11/16 21:00 12/11/16 20:59 11/11/16 21:00 Cefepime HCl/ Dextrose (Maxipime/D5W) 55 ml @ 110 mls/hr Q24H IV 11/11/16 15:00 11/18/16 14:59 11/12/16 15:48 Daptomycin/Sodium Chloride (Cubicin/Sodium Chloride) 55 ml @ 100 mls/hr Q24H IV 11/11/16 22:00 11/18/16 21:59 11/11/16 22:27 Dextrose STAT PRN IV Hypoglycemia 11/11/16 13:30 12/11/16 13:29 Heparin Sodium (Porcine) (Heparin 5000 units/ml) 5,000 units EVERY 12 HOURS SUBQ 11/11/16 21:00 12/11/16 20:59 11/12/16 08:42 Insulin Aspart (NovoLOG) BEFORE MEALS AND HS SUBQ 11/11/16 16:30 12/11/16 16:29 11/12/16 17:09 Insulin Aspart (NovoLOG) 6 units NOVOTIAC SUBQ 11/12/16 11:50 12/12/16 11:49 11/12/16 17:10 Insulin Detemir (Levemir) 24 units DAILY SUBQ 11/12/16 09:30 12/12/16 09:29 11/12/16 10:20 Lorazepam (Ativan 2mg/ml 1ml) 0.5 mg Q4H PRN IV For Anxiety 11/11/16 13:30 11/18/16 13:29 Metronidazole (Flagyl) 500 mg Q8HR ORAL 11/11/16 14:00 11/18/16 13:59 11/12/16 14:20 Morphine Sulfate (Morphine Sulfate) 1 mg Q4H PRN IVP PAIN 4-10 11/11/16 13:30 11/18/16 13:29 11/11/16 22:31 Ondansetron HCl (Zofran) 4 mg Q6H PRN IVP Nausea & Vomiting 11/11/16 13:30 12/11/16 13:29 Polyethylene Glycol (Miralax) 17 gm HSPRN PRN ORAL Constipation 11/11/16 21:00 12/11/16 20:59 Zolpidem Tartrate (Ambien) 5 mg HSPRN PRN ORAL Insomnia 11/11/16 21:00 12/11/16 20:59 PAM QUEEN Nov 12, 2016 18:49
[2016-11-12] MEDS: DAPTOmycin 350 MG in NS 55 ML IV SCH (21:18)
[2016-11-12] MEDS: Atorvastatin 20mg tab ORAL SCH (21:19)
[2016-11-13] VITALS: BP 116/80
[2016-11-13] MEDS: Morphine Sulfate 2mg/ml Inj IVP PRN ×2 (02:45→14:52)
[2016-11-13 04:00] VITALS: BP 119/69
[2016-11-13] MEDS: metroNIDAZOLE 500mg tab ORAL SCH ×2 (06:51→14:30)
[2016-11-13] MEDS: NovoLOG Insulin Flexpen SUBQ SCH ×6 (06:53→17:30)
[2016-11-13 08:00] VITALS: BP 131/88
--- NOTE | 2016-11-13 09:23 | General Progress Note ---
Assessment/Plan Problem List: (1) Poorly controlled diabetes mellitus ICD Codes: E11.9 - Poorly controlled diabetes mellitus SNOMED: 47034448 (2) Renal insufficiency ICD Codes: N28.9 - Renal insufficiency SNOMED: 834386541 (3) Osteomyelitis ICD Codes: M86.9 - Osteomyelitis, unspecified SNOMED: 23214386 Assessment/Plan Levemir 24 units daily Novolog 6 units + SSI Subjective Allergies: Coded Allergies: VANCOMYCIN (Verified Allergy, Unknown, 11/12/16) All Systems: reviewed and negative except above Subjective events noted Objective Last 24 Hour Vital Signs Date Time Temp Pulse Resp B/P Pulse Ox O2 Delivery O2 Flow Rate FiO2 11/13/16 08:00 96.4 93 20 131/88 99 Room Air 11/13/16 04:00 98.1 78 20 119/69 99 Room Air 11/13/16 03:15 97.9 11/13/16 00:00 97.9 92 20 116/80 99 Room Air 11/12/16 20:00 97.3 94 22 126/83 100 Room Air 11/12/16 16:00 97.9 88 20 119/83 99 Room Air 11/12/16 12:00 98.1 80 18 107/74 98 Room Air Intake and Output 11/12/16 11/13/16 19:00 07:00 Intake Total 1735 ml 600 ml Output Total 675 ml 975 ml Balance 1060 ml -375 ml Intake Oral 1680 ml 600 ml IV Total 55 ml Output Urine Total 675 ml 975 ml # Voids 2 2 Height (Feet): 5 Height (Inches): 5.00 Weight (Pounds): 135 General Appearance: no apparent distress Neck: normal alignment Cardiovascular: regular rhythm Respiratory/Chest: normal breath sounds Abdomen: normal bowel sounds Objective Current Medications Medications (Trade) Dose Ordered Sig/Julian Route PRN Reason Start Time Stop Time Status Last Admin Dose Admin Acetaminophen (Tylenol) 650 mg Q4H PRN ORAL T>100.5 11/11/16 13:30 12/11/16 13:29 Al Hydroxide/Mg Hydroxide 30 ml 30 ml Q6H PRN ORAL dyspepsia 11/11/16 13:30 12/11/16 13:29 Atorvastatin Calcium (Lipitor) 20 mg BEDTIME ORAL 11/11/16 21:00 12/11/16 20:59 11/12/16 21:19 Cefepime HCl/ Dextrose (Maxipime/D5W) 55 ml @ 110 mls/hr Q24H IV 11/11/16 15:00 11/18/16 14:59 11/12/16 15:48 Daptomycin/Sodium Chloride (Cubicin/Sodium Chloride) 55 ml @ 100 mls/hr Q24H IV 11/11/16 22:00 11/18/16 21:59 11/12/16 21:18 Dextrose STAT PRN IV Hypoglycemia 11/11/16 13:30 12/11/16 13:29 11/12/16 19:21 Heparin Sodium (Porcine) (Heparin 5000 units/ml) 5,000 units EVERY 12 HOURS SUBQ 11/11/16 21:00 12/11/16 20:59 11/12/16 21:24 Insulin Aspart (NovoLOG) BEFORE MEALS AND HS SUBQ 11/11/16 16:30 12/11/16 16:29 11/13/16 06:53 Insulin Aspart (NovoLOG) 6 units NOVOTIAC SUBQ 11/12/16 11:50 12/12/16 11:49 11/13/16 06:54 Insulin Detemir (Levemir) 24 units DAILY SUBQ 11/12/16 09:30 12/12/16 09:29 11/12/16 10:20 Lorazepam (Ativan 2mg/ml 1ml) 0.5 mg Q4H PRN IV For Anxiety 11/11/16 13:30 11/18/16 13:29 Metronidazole (Flagyl) 500 mg Q8HR ORAL 11/11/16 14:00 11/18/16 13:59 11/13/16 06:51 Morphine Sulfate (Morphine Sulfate) 1 mg Q4H PRN IVP PAIN 4-10 11/11/16 13:30 11/18/16 13:29 11/13/16 02:45 Ondansetron HCl (Zofran) 4 mg Q6H PRN IVP Nausea & Vomiting 11/11/16 13:30 12/11/16 13:29 Polyethylene Glycol (Miralax) 17 gm HSPRN PRN ORAL Constipation 11/11/16 21:00 12/11/16 20:59 Zolpidem Tartrate (Ambien) 5 mg HSPRN PRN ORAL Insomnia 11/11/16 21:00 12/11/16 20:59 Item Value Date Time Bedside Blood Glucose 204 mg/dl H 11/13/16 0654 Bedside Blood Glucose 138 mg/dl H 11/12/16 195 Bedside Blood Glucose 256 mg/dl H 11/12/16 1710 Bedside Blood Glucose 230 mg/dl H 11/12/16 1212 Bedside Blood Glucose 245 mg/dl H 11/12/16 1020 ALEX BRANDON Nov 13, 2016 09:23
[2016-11-13] MEDS: Levemir Flexpen SUBQ SCH (09:36)
[2016-11-13] MEDS: Heparin 5000 units/ml inj SUBQ SCH (09:37)
--- NOTE | 2016-11-13 11:08 | Infectious Diseases Prog Note ---
Assessment/Plan Assessment/Plan A: Diabetic foot osteomyelitis/ abscess Uncontrolled DM Acute renal failure, CKD Anemia P; Continue Daptomycin & Cefepime will f/u cultures Subjective ROS Limited/Unobtainable: No Constitutional: Reports: no symptoms Respiratory: Reports: no symptoms Cardiovascular: Reports: no symptoms Gastrointestinal/Abdominal: Reports: no symptoms Genitourinary: Reports: no symptoms Musculoskeletal: Reports: other - in R foot, pain Allergies: Coded Allergies: VANCOMYCIN (Verified Allergy, Unknown, 11/12/16) Objective Vital Signs Last 24 Hour Vital Signs Date Time Temp Pulse Resp B/P Pulse Ox O2 Delivery O2 Flow Rate FiO2 11/13/16 08:00 96.4 93 20 131/88 99 Room Air 11/13/16 04:00 98.1 78 20 119/69 99 Room Air 11/13/16 03:15 97.9 11/13/16 00:00 97.9 92 20 116/80 99 Room Air 11/12/16 20:00 97.3 94 22 126/83 100 Room Air 11/12/16 16:00 97.9 88 20 119/83 99 Room Air 11/12/16 12:00 98.1 80 18 107/74 98 Room Air Height (Feet): 5 Height (Inches): 5.00 Weight (Pounds): 135 General Appearance: no acute distress HEENT: mucous membranes moist Respiratory/Chest: lungs clear Cardiovascular: normal rate Abdomen: soft, non tender Extremities: no edema, other - R big toe amputation, ulcer of R foot Microbiology Date/Time Source Procedure Growth Status 11/11/16 12:10 Blood Blood Culture - Preliminary NO GROWTH AFTER 24 HOURS Resulted 11/11/16 11:50 Blood Blood Culture - Preliminary NO GROWTH AFTER 24 HOURS Resulted 11/11/16 18:30 Wound Gram Stain - Final Resulted 11/11/16 18:30 Wound Culture - Preliminary Staphylococcus Aureus Resulted 11/11/16 12:50 Nasal Nares MRSA Culture - Final NO METHICILLIN RESISTANT STAPH AUREUS... Complete 11/11/16 12:30 Rectum VRE Culture - Final NO VANCOMYCIN RESISTANT ENTEROCOCCUS ... Complete Current Medications Medications (Trade) Dose Ordered Sig/Julian Route PRN Reason Start Time Stop Time Status Last Admin Dose Admin Acetaminophen (Tylenol) 650 mg Q4H PRN ORAL T>100.5 11/11/16 13:30 12/11/16 13:29 Al Hydroxide/Mg Hydroxide 30 ml 30 ml Q6H PRN ORAL dyspepsia 11/11/16 13:30 12/11/16 13:29 Atorvastatin Calcium (Lipitor) 20 mg BEDTIME ORAL 11/11/16 21:00 12/11/16 20:59 11/12/16 21:19 Cefepime HCl/ Dextrose (Maxipime/D5W) 55 ml @ 110 mls/hr Q24H IV 11/11/16 15:00 11/18/16 14:59 11/12/16 15:48 Daptomycin/Sodium Chloride (Cubicin/Sodium Chloride) 55 ml @ 100 mls/hr Q24H IV 11/11/16 22:00 11/18/16 21:59 11/12/16 21:18 Dextrose STAT PRN IV Hypoglycemia 11/11/16 13:30 12/11/16 13:29 11/12/16 19:21 Heparin Sodium (Porcine) (Heparin 5000 units/ml) 5,000 units EVERY 12 HOURS SUBQ 11/11/16 21:00 12/11/16 20:59 11/13/16 09:37 Insulin Aspart (NovoLOG) BEFORE MEALS AND HS SUBQ 11/11/16 16:30 12/11/16 16:29 11/13/16 06:53 Insulin Aspart (NovoLOG) 6 units NOVOTIAC SUBQ 11/12/16 11:50 12/12/16 11:49 11/13/16 06:54 Insulin Detemir (Levemir) 24 units DAILY SUBQ 11/12/16 09:30 12/12/16 09:29 11/13/16 09:36 Lorazepam (Ativan 2mg/ml 1ml) 0.5 mg Q4H PRN IV For Anxiety 11/11/16 13:30 11/18/16 13:29 Metronidazole (Flagyl) 500 mg Q8HR ORAL 11/11/16 14:00 11/18/16 13:59 11/13/16 06:51 Morphine Sulfate (Morphine Sulfate) 1 mg Q4H PRN IVP PAIN 4-10 11/11/16 13:30 11/18/16 13:29 11/13/16 02:45 Ondansetron HCl (Zofran) 4 mg Q6H PRN IVP Nausea & Vomiting 11/11/16 13:30 12/11/16 13:29 Polyethylene Glycol (Miralax) 17 gm HSPRN PRN ORAL Constipation 11/11/16 21:00 12/11/16 20:59 Zolpidem Tartrate (Ambien) 5 mg HSPRN PRN ORAL Insomnia 11/11/16 21:00 12/11/16 20:59 ALFREDA PARR Nov 13, 2016 11:08
[2016-11-13 12:00] VITALS: BP 106/79
[2016-11-13] MEDS: Cefepime HCl 1 GM in D5W 55 ML IV SCH (14:30)
[2016-11-13 16:00] VITALS: BP 118/81
--- NOTE | 2016-11-13 18:06 | Podiatric Progress Note ---
Assessment/Plan Patient Dougie Toure is a 51 year old male who was admitted on Nov 11, 2016 at 12: 13 with right foot ulcer Problems: Assessment/Plan 2 days status post right foot I&D. Cellulitis has improved. Wound is stable. Preliminary culture is growing staph aurues. Okay for discharge from podiatry standpoint with oral antibiotics and daily dressing changes using mupirocin. Patient states he is able to perform the dressing changes himself and does not require home health. He will follow up weekly at [facility]. Patient was instructed to discontinue using the shoes that caused the ulcer. Dispense post op shoe for the right before discharge. Subjective Procedure Performed 2 days status post right foot I&D Allergies: Coded Allergies: VANCOMYCIN (Verified Allergy, Unknown, 11/12/16) Subjective Patient states he is doing well. No pain, nausea, vomiting, fever, or chills reported. Patient has been minimally weight bearing on the right foot Objective Exam Last 24 Hour Vital Signs Date Time Temp Pulse Resp B/P Pulse Ox O2 Delivery O2 Flow Rate FiO2 11/13/16 16:00 96.0 80 19 118/81 99 Room Air 11/13/16 12:00 98.2 82 16 106/79 100 Room Air 11/13/16 08:00 96.4 93 20 131/88 99 Room Air 11/13/16 04:00 98.1 78 20 119/69 99 Room Air 11/13/16 03:15 97.9 11/13/16 00:00 97.9 92 20 116/80 99 Room Air 11/12/16 20:00 97.3 94 22 126/83 100 Room Air Microbiology Date/Time Source Procedure Growth Status 11/11/16 12:10 Blood Blood Culture - Preliminary NO GROWTH AFTER 24 HOURS Resulted 11/11/16 18:30 Wound Gram Stain - Final Resulted 11/11/16 18:30 Wound Culture - Preliminary Staphylococcus Aureus Resulted 11/11/16 12:50 Nasal Nares MRSA Culture - Final NO METHICILLIN RESISTANT STAPH AUREUS... Complete 11/11/16 12:30 Rectum VRE Culture - Final NO VANCOMYCIN RESISTANT ENTEROCOCCUS ... Complete Exam Narrative Right plantar foot ulcer is stable. No purulence or malodor noted. Wound does not probe to bone. Surrounding cellulitis has improved Joaquin Pastrana DPM Nov 13, 2016 18:06
[2016-11-13 20:00] VITALS: BP 109/73
--- NOTE | 2016-11-13 20:59 | Consultation ---
DATE OF CONSULTATION: 11/12/2016 CONSULTING PHYSICIAN: Jaycob Duvall M.D. REFERRING PHYSICIAN: Harvinder Campos M.D. REASON FOR CONSULTATION: Diabetes management. HISTORY OF PRESENT ILLNESS: The patient is a 51-year-old male with past medical history of insulin dependent diabetes, with history of osteomyelitis of the right foot who had a recent debridement. The patient was admitted to the hospital with ongoing infection of the right foot. Endocrinology was consulted in order to assist in the management of diabetes. PAST MEDICAL HISTORY: 1. Right foot osteomyelitis. 2. Diabetes, insulin dependent. 3. Renal failure. 4. Bacteremia. 5. Nephrolithiasis. MEDICATIONS: Reviewed and reconciled. ALLERGY TO MEDICATIONS: None. SOCIAL HISTORY: No smoking, alcohol, or drug use. FAMILY HISTORY: Noncontributory. LABORATORY DATA: Sodium 137, potassium 4.9, chloride 100, bicarbonate 23, BUN 30, creatinine 1.7, and glucose 240. A1c of 8.5. PHYSICAL EXAMINATION: VITAL SIGNS: Blood pressure is 131/88, pulse 93, temperature 96.4, and respiratory rate 20. HEENT: Pupils are equal and reactive to light and accommodation. Sclerae are anicteric. NECK: No JVD. No thyromegaly. No bruits. LUNGS: Clear. HEART: Regular rate and rhythm. ABDOMEN: Positive bowel sounds. Soft. EXTREMITIES: + edema DIAGNOSES: 1. Diabetes out of control.. 2. Right foot osteomyelitis. 3. Renal failure PLAN: 1. Levemir 24 units daily. 2. NovoLog 6 units before each meal. 3. NovoLog sliding scale before meals and at bedtime. 4. Further adjustment according to blood glucose value. Thank you Dr. Campos for request of this consultation. Jaycob Duvall M.D. DR: MOLLY JOB#: [id number] CC: ADAN
--- NOTE | 2016-11-13 23:31 | Pulmonology Progress Note ---
Assessment/Plan Problems: (1) Sepsis (2) Cellulitis in diabetic foot (3) Diabetic nephropathy (4) Acquired absence of right great toe (5) Cellulitis of right foot (6) Iron deficiency anemia Assessment/Plan wound care IV antibiotics check cultures sliding scale diabetic diet and teaching. Subjective Allergies: Coded Allergies: VANCOMYCIN (Verified Allergy, Unknown, 11/12/16) Objective Last 24 Hour Vital Signs Date Time Temp Pulse Resp B/P Pulse Ox O2 Delivery O2 Flow Rate FiO2 11/13/16 20:00 97.3 92 18 109/73 100 Room Air 11/13/16 16:00 96.0 80 19 118/81 99 Room Air 11/13/16 12:00 98.2 82 16 106/79 100 Room Air 11/13/16 08:00 96.4 93 20 131/88 99 Room Air 11/13/16 04:00 98.1 78 20 119/69 99 Room Air 11/13/16 03:15 97.9 11/13/16 00:00 97.9 92 20 116/80 99 Room Air Intake and Output 11/12/16 11/13/16 19:00 07:00 Intake Total 1735 ml 600 ml Output Total 675 ml 975 ml Balance 1060 ml -375 ml Intake Oral 1680 ml 600 ml IV Total 55 ml Output Urine Total 675 ml 975 ml # Voids 2 2 Microbiology Date/Time Source Procedure Growth Status 11/11/16 12:10 Blood Blood Culture - Preliminary NO GROWTH AFTER 24 HOURS Resulted 11/11/16 11:50 Blood Blood Culture - Preliminary NO GROWTH AFTER 24 HOURS Resulted 11/11/16 18:30 Wound Gram Stain - Final Resulted 11/11/16 18:30 Wound Culture - Preliminary Staphylococcus Aureus Resulted 11/11/16 12:50 Nasal Nares MRSA Culture - Final NO METHICILLIN RESISTANT STAPH AUREUS... Complete 11/11/16 12:30 Rectum VRE Culture - Final NO VANCOMYCIN RESISTANT ENTEROCOCCUS ... Complete PAM QUEEN Nov 13, 2016 23:31
--- NOTE | 2016-11-14 14:30 | Diagnostic Imaging Report ---
APPROVED REPORT CPT Code: 57168 Risk Factors History of lower extremity PAD: Right BILATERAL: Common femoral artery waveform analysis is within normal limits at rest. Color flow duplex sonography reveals patency of the superficial femoral, popliteal, and tibial arteries, there is no evidence of stenosis or occlusion within these segments. Doppler tibial artery waveform analysis is within normal limits, bilaterally. There is no evidence of significant arterial occlusive disease, bilaterally.
--- NOTE | 2016-11-14 14:31 | Diagnostic Imaging Report ---
APPROVED REPORT CPT Code: 36141 Present Symptoms Lower Extremity Pain: Bilateral BILATERAL: Imaging reveals a patent deep venous system bilaterally. There is no evidence of thrombus within the femoral, popliteal or tibial segments. The greater saphenous veins are also within normal limits. Doppler indicates normal spontaneous flow within these segments.
[2016-11-15] MEDS ORDERED: LEVAQUIN500 MG ORAL (09:20)
--- NOTE | 2016-11-15 09:32 | Discharge Summary ---
Discharge Summary Hospital Course Date of Admission Nov 11, 2016 at 12:13 Date of Discharge Nov 13, 2016 at 21:00 Admitting Diagnosis DIABETIC FOOT CELLULITIS HPI Dougie Toure is a 51 year old male who was admitted on Nov 11, 2016 at 12: 13 for Diabetic Foot Cellulitis Hospital Course dc summary #[id number] Discharge Medications New Medications: Levofloxacin* (Levaquin*) 500 Mg Tablet 500 MG ORAL DAILY, #37 TAB Continued Medications: Acetaminophen With Codeine (T#4) (Tylenol #4 Tab*) Y Tab 1 TAB ORAL Q6H PRN for For Pain, #15 TAB 0 Refills Atorvastatin Calcium* (Lipitor*) 20 Mg Tablet 20 MG ORAL QHS, #30 TAB Insulin Aspart (Novolog Flexpen) 100 Unit/1 Ml Insuln.pen 7 ACHS Insulin Detemir (Levemir Flexpen) 100 Unit/1 Ml Insuln.pen 24 SUBQ DAILY, #100 UNITS Discharge Condition Upon Discharge: stable Discharge Disposition Patient was discharged to Home (01) Discharge Diagnoses: Discharge Instructions Discharge Instructions Special Instructions I have been assigned to complete a D/C Summary on this account. I was not involved in the patient management Tomas VelascoYareli cid NP Nov 15, 2016 09:32
--- NOTE | 2016-11-15 23:07 | Discharge Summary 2 SIG ---
DATE OF ADMISSION: 11/11/2016 DATE OF DISCHARGE: 11/13/2016 REASON FOR ADMISSION: The patient is a 51-year-old male with history of poorly-controlled diabetes and diabetic foot ulcer with a previous surgery presented with a complaint of redness and infection in the right foot. The patient reported fever. Pain worse with ambulation. Workup in the emergency room revealed glucose of 536. No leukocytosis. Lactic acid within normal limits. Electrolytes: BUN 35 and creatinine 2.3. X-ray of the right foot revealed postsurgical changes. No definite plain radiographic findings to suggest acute osteomyelitis. No acute bony trauma. The patient was afebrile. The patient admitted for further management. In the emergency room, the patient was started on empiric antibiotics. IV fluids started. Hyperglycemia was treated. The patient admitted for further management. ADMITTING DIAGNOSES: 1. Diabetic foot ulcer, right foot. 2. Diabetes, out of control. 3. Hyperglycemia. 4. Cellulitis, right foot. 5. Diabetic nephropathy. HOSPITAL STAY: The patient admitted. ID consult and podiatry consult were requested. Environmental Designer seen and evaluated the patient. The patient subsequently undergone incision and drainage of the right foot abscess at the bedside. Drainage was cultured. The wound was noted to be partial thickness and did not probe to bone. Dressing was applied. Daily dressing changes were provided as per tower control operator's recommendation. Wound culture grew Staph aureus, methicillin sensitive. Venous duplex bilateral lower extremity was negative for acute DVT. Renal ultrasound was done in lieu of renal insufficiency and it revealed no evidence of hydronephrosis. Both kidneys demonstrated normal echogenicity. ID initially treated the patient with IV antibiotics. The patient responded. Environmental Designer closely followed up. On the day of discharge, tower control operator reported that right plantar foot ulcer was stable. No purulent or malodor was noted. The wound did not probe to bone. Surrounding cellulitis has improved. Culture grew Staph aureus, methicillin sensitive as mentioned above. The patient was discharged home on oral antibiotics for a total of 42 days. Minister Of Religion also followed up the patient for hyperglycemia. Blood sugar improved. Hemoglobin A1c 8.5. Explained to the patient that the goal should below 7 and the patient started on the regimen of long-acting insulin of Levemir and short acting of NovoLog premeal as well as a sliding scale as needed. Blood sugar better. Continue blood sugar management at home with the current regimen. Prescription provided. The patient to follow up closely with his primary medical doctor for optimization of antiglycemic regimen. The patient was stable for discharge. FINAL DIAGNOSES: 1. Diabetic foot ulcer, right foot. 2. Cellulitis, right foot. 3. Right foot abscess, status post incision and drainage. 4. Diabetes, out of control. 5. Diabetic nephropathy. 6. Acute on chronic kidney disease. 7. Anemia. 8. Possible osteomyelitis. Of note, hemoglobin and hematocrit are stable. Further workup for anemia as outpatient. Lipid panel was checked, elevated triglycerides with a stable LDL. DISCHARGE MEDICATIONS: See medication reconciliation list. DISCHARGE INSTRUCTIONS: The patient discharged home. FOLLOWUP: With the primary medical doctor for further management and close blood sugar monitoring. Harvinder Campos M.D. I have been assigned to dictate discharge summary on this account and I was not involved in the patient's management. Yareli carrascoJuvenal cid DR: CLEMENTE JOB#: [id number] CC:
== END 2016-11-13 21:00 | disposition home or self-care (01) | DRG 580 ==
LOC: EDBEDREQ 11:46 → EMR 12:10 → 4W 12:13 → EDBEDREQ 12:33
PROC: 0J9Q0ZZ Drainage of Right Foot Subcutaneous Tissue and Fascia, Open Approach (ICD-10-PCS; principal; 2016-11-11)
DX: L03.115 Cellulitis of right lower limb (principal); M86.8X7 Other osteomyelitis, ankle and foot; N17.9 Acute kidney failure, unspecified; E11.21 Type 2 diabetes mellitus with diabetic nephropathy; E11.42 Type 2 diabetes mellitus with diabetic polyneuropathy; E11.621 Type 2 diabetes mellitus with foot ulcer; Z89.411 Acquired absence of right great toe; D50.9 Iron deficiency anemia, unspecified; E11.65 Type 2 diabetes mellitus with hyperglycemia; Z79.4 Long term (current) use of insulin; I12.9 Hypertensive chronic kidney disease with stage 1 through stage 4 chronic kidney disease, or unspecified chronic kidney disease; N18.9 Chronic kidney disease, unspecified; Z89.421 Acquired absence of other right toe(s)
CPT/HCPCS: 36415; 76775; 80053; 80061; 81001; 82436; 82533; 82550; 82553; 82962; 83036; 83605; 83735; 83930; 83935; 84100; 84133; 84300; 84439; 84443; 84481; 84550; 85025; 85651; 86140; 87040; 87070; 87081; 87181; 87205; 89050; 93925; 93970; J1815; S0077; S5561

== ENCOUNTER 2016-11-15 13:24 | Outpatient (RCR) | payer MEDICARE, MEDICAID ==
[~2016-11-15 13:24] MED LIST changes: +LEVAQUIN500 MG ORAL; +NOVOLIN 70100 UNIT/1 SUBQ
== END 2016-11-20 | disposition home or self-care (01) ==
LOC: WCC 13:24
DX: L97.513 Non-pressure chronic ulcer of other part of right foot with necrosis of muscle (principal); E11.622 Type 2 diabetes mellitus with other skin ulcer; E11.43 Type 2 diabetes mellitus with diabetic autonomic (poly)neuropathy; Z79.4 Long term (current) use of insulin; I10 Essential (primary) hypertension; E78.5 Hyperlipidemia, unspecified; Z89.411 Acquired absence of right great toe
CPT/HCPCS: 11043; 82962; G0277; G0463

== ENCOUNTER → 2016-11-16 | Outpatient (CLI) | payer MEDICARE, MEDICAID ==
[~2016-11-16] VITALS: Ht 165.1 cm; Wt 62.6 kg
[~2016-11-16] MED LIST changes: +Heparin 2000 units/Ns 1000ml INJ ONE; +Lidocaine 1% Plain 30 ml INJ ONE; +Sodium Bicarbonate 8.4% 50ml Inj IV ONE
--- NOTE | 2016-11-16 11:53 | Consultation ---
History of Present Illness General Date patient seen: Nov 16, 2016 Time patient seen: 11:48 Chief Complaint: Righ Foot Referring physician: Dennis Bethea Reason for Consultation: Right foot diabetic wound Present Illness HPI 51 year old male with hx of DM, and plantar Wanger 3 diabetic ulcer, recently drained. Pt has been getting Cubicin via a picc line. [facility]. Allergies: Coded Allergies: VANCOMYCIN (Verified Allergy, Unknown, 11/12/16) Medication History Scheduled Atorvastatin Calcium* (Lipitor*), 20 MG ORAL QHS Insulin Aspart (Novolog Flexpen), 7 ACHS, (Reported) Insulin Detemir (Levemir Flexpen), 24 SUBQ DAILY, (Reported) Levofloxacin* (Levaquin*), 500 MG ORAL DAILY Scheduled PRN Acetaminophen With Codeine (T#4) (Tylenol #4 Tab*), 1 TAB ORAL Q6H PRN for For Pain Patient History Healthcare decision maker Resuscitation status Advanced Directive on File Past Medical/Surgical History Past Medical/Surgical History: (1) Osteomyelitis (2) Diabetic foot ulcer (3) Diabetic nephropathy (4) Renal insufficiency Review of Systems Skin: Reports: other - right plantar ulcer All Other Systems: negative except mentioned in HPI Physical Exam General Appearance: cachetic Lines, tubes and drains: peripheral, PICC HEENT: normocephalic, atraumatic Neck: non-tender, supple, normal inspection Respiratory/Chest: chest wall non-tender, lungs clear, no respiratory distress Cardiovascular/Chest: normal peripheral pulses, normal rate Abdomen: normal bowel sounds, non tender Genitourinary/Rectal: normal genital exam, normal rectal exam Extremities: normal range of motion, normal inspection Neurologic: manager center II-XII grossly normal Assessment/Plan Problem List: (1) Weaver 3 diabetic foot ulcer (2) Osteomyelitis ICD Codes: M86.9 - Osteomyelitis, unspecified SNOMED: [id number] (3) Diabetic nephropathy ICD Codes: E11.29 - Diabetic nephropathy SNOMED: [id number] Assessment/Plan Hyperbaric treatment, 30 cessions, each 2 hours 2 TRUPTI. f/u by podiatry continue Antibiotics PAM QUEEN Nov 16, 2016 11:53
--- NOTE | 2016-11-16 11:56 | Diagnostic Imaging Report ---
Indications: Needs long-term IV access Technique: Ultrasound confirms patent compressible left basilic vein. Total sterile technique, including sterile probe cover and sterile gel, hat, mask,, sterile gown, large sterile drape, and preparation with 2% chlorhexidine utilized. Local anesthesia with 1% lidocaine. Under real-time ultrasound guidance, puncture basilic vein using 21-gauge needle, documented and archived, passage 0.018 guidewire under direct fluoroscopy, which was used to determine appropriate catheter length, exchange for 5 [place] peel-away sheath. 5 [place] Bard dual-lumen power PICC cut to cm. It was inserted through the peel-away sheath. Peel-away sheath and guidewire removed. Catheter fixed to the skin. Both catheter ports aspirated and flushed. Patient tolerated procedure well, without immediate complication. Digital radiograph documents satisfactory catheter tip position, at the cavoatrial junction. Total fluoroscopy time 0.5 minutes. Total dose area product 27 dGycm2 Impression: Successful placement of left arm PICC under sonographic and fluoroscopic guidance, as described above.
== END | disposition home or self-care (01) ==
LOC: RAD 09:47
DX: M86.9 Osteomyelitis, unspecified (principal); E11.621 Type 2 diabetes mellitus with foot ulcer; E11.40 Type 2 diabetes mellitus with diabetic neuropathy, unspecified; N28.9 Disorder of kidney and ureter, unspecified; Z88.8 Allergy status to other drugs, medicaments and biological substances
CPT/HCPCS: 36569; 76937; J1644; J2001; J3490

== ENCOUNTER 2016-11-21 12:19 | Outpatient (RCR) | payer MEDICARE, MEDICAID ==
[~2016-11-21 12:19] MED LIST changes: -Heparin 2000 units/Ns 1000ml INJ ONE; -Lidocaine 1% Plain 30 ml INJ ONE; -Sodium Bicarbonate 8.4% 50ml Inj IV ONE
== END 2016-12-21 | disposition home or self-care (01) ==
LOC: WCC 12:19
DX: L97.513 Non-pressure chronic ulcer of other part of right foot with necrosis of muscle (principal); E11.622 Type 2 diabetes mellitus with other skin ulcer; E11.43 Type 2 diabetes mellitus with diabetic autonomic (poly)neuropathy; Z89.421 Acquired absence of other right toe(s); M19.90 Unspecified osteoarthritis, unspecified site; I10 Essential (primary) hypertension; Z79.4 Long term (current) use of insulin
CPT/HCPCS: 11042; 82962; 87070; 87181; 87205; G0277; G0463

== ENCOUNTER 2016-11-23 12:10 | Outpatient (CLI) | payer MEDICARE, MEDICAID ==
--- NOTE | 2016-11-23 16:14 | Diagnostic Imaging Report ---
Indication: OSTEOMY Technique: Sagittal, coronal, and axial T1 fast spin echo and fast spin echo STIR images were obtained of the include Comparison: Radiograph 11/11/2016, MRI 04/23/2015, bone scan 03/11/2016 Findings: Surgical hardware extends through the distal fibula, through the talus, and into the calcaneus. This throws off some susceptibility artifact which could obscure pathology. An MRI marker neville a plantar surface ulcer, although the ulcer is not readily apparent on these images. There is prior application of the distal aspect of the metatarsal. The residual fifth metatarsal demonstrates normal marrow signal. The fifth proximal phalanx remains, likewise demonstrates normal marrow signal. Previously demonstrated postsurgical changes of the first metatarsal are likewise noted. Likewise, no underlying signal abnormality is evident. There is minimal increased STIR signal within the cuboid which is probably degenerative in nature. The bones of the midfoot are otherwise unremarkable, demonstrating no evidence of abnormal marrow signal otherwise. There is some suggestion of abnormal signal adjacent to the surgical hardware within the tibia, talus and calcaneus. This is most likely a combination of artifact and possibly some marrow edema related to surgery, not suspicious process otherwise. Impression: Findings as noted, including prior ankle arthrodesis, previously described. No definite evidence of osteomyelitis
== END 2016-11-23 14:00 | disposition home or self-care (01) ==
LOC: MRI 12:10
DX: M86.9 Osteomyelitis, unspecified (principal)

== ENCOUNTER 2016-12-22 09:00 | Outpatient (RCR) | payer MEDICARE, MEDICAID | END 2017-01-20 | disposition home or self-care (01) | LOC: WCC 09:00 | DX: L97.513 Non-pressure chronic ulcer of other part of right foot with necrosis of muscle (principal); E11.622 Type 2 diabetes mellitus with other skin ulcer; E11.43 Type 2 diabetes mellitus with diabetic autonomic (poly)neuropathy; Z79.4 Long term (current) use of insulin; I10 Essential (primary) hypertension | CPT/HCPCS: 82962; G0277; G0463 ==

== ENCOUNTER 2017-04-04 14:54 | Outpatient (RCR) | payer MEDICARE, OTHER | END 2017-04-22 | disposition home or self-care (01) | LOC: WCC 14:54 | DX: L97.513 Non-pressure chronic ulcer of other part of right foot with necrosis of muscle (principal); E11.622 Type 2 diabetes mellitus with other skin ulcer; E11.43 Type 2 diabetes mellitus with diabetic autonomic (poly)neuropathy; Z79.4 Long term (current) use of insulin; M19.90 Unspecified osteoarthritis, unspecified site; I10 Essential (primary) hypertension; Z89.421 Acquired absence of other right toe(s); E78.5 Hyperlipidemia, unspecified | CPT/HCPCS: 11043; G0463 ==

== ENCOUNTER 2017-04-25 14:00 | Outpatient (RCR) | payer MEDICARE, OTHER ==
--- NOTE | 2017-05-16 16:23 | Infectious Diseases Prog Note ---
Assessment/Plan Problems: (1) Diabetic foot ulcer Assessment & Plan: Wound culture noted. Currently does not appear to be infected. Adjust orthotics and continue wound care at this point. (2) Diabetes mellitus (3) Diabetic nephropathy Subjective Allergies: Coded Allergies: VANCOMYCIN (Verified Allergy, Unknown, 11/12/16) LULÚ GLASGOW May 16, 2017 16:23
== END 2017-05-23 | disposition home or self-care (01) ==
LOC: WCC 14:00
DX: L97.513 Non-pressure chronic ulcer of other part of right foot with necrosis of muscle (principal); E11.621 Type 2 diabetes mellitus with foot ulcer; E11.622 Type 2 diabetes mellitus with other skin ulcer; E11.43 Type 2 diabetes mellitus with diabetic autonomic (poly)neuropathy
CPT/HCPCS: 10060; 11042; 11043; 87070; 87181; 87205; G0463

== ENCOUNTER 2017-05-30 13:23 | Outpatient (RCR) | payer MEDICARE, OTHER | END 2017-06-22 | disposition home or self-care (01) | LOC: WCC 13:23 | DX: L97.513 Non-pressure chronic ulcer of other part of right foot with necrosis of muscle (principal); E11.622 Type 2 diabetes mellitus with other skin ulcer; E11.43 Type 2 diabetes mellitus with diabetic autonomic (poly)neuropathy; I10 Essential (primary) hypertension; E11.9 Type 2 diabetes mellitus without complications; M19.90 Unspecified osteoarthritis, unspecified site; E78.5 Hyperlipidemia, unspecified; Z79.4 Long term (current) use of insulin | CPT/HCPCS: G0463 ==

== ENCOUNTER 2017-06-25 14:35 | Emergency (ER) | payer MEDICARE, MEDICAID ==
[~2017-06-25] VITALS: Ht 167.6 cm; Wt 61.2 kg
[2017-06-25] MEDS ORDERED: LANTUS SOL100 UNIT/1 SUBQ (14:56)
[2017-06-25] MEDS ORDERED: Norco 5mg/325mg tab ORAL ONE (15:15)
[2017-06-25] MEDS ORDERED: KNEE BRACE1 EACH MC (16:59)
[2017-06-25] MEDS ORDERED: NORCO 5-325 TA1 EAC1 ORAL (16:59)
[2017-06-25 17:17] VITALS: BP 111/69
--- NOTE | 2017-06-25 19:43 | Emergency Room Report ---
History of Present Illness General Chief Complaint: Lower Extremity Injury Source: Patient (BOWEN PUGA) Present Illness HPI The patient is a 51-year-old male presenting for right knee pain. This began one week prior after he tripped and fell onto the right knee. He denies hitting his head or loss of consciousness. He denies any other pain. Pain is a 10 out of 10 dull ache. He has tried Motrin at home which has not been helping. He denies previous knee injury. He denies radiating pain. Pain is worse with touch and movement. He denies any numbness or tingling. He denies any other symptoms (BOWEN PUGA) Allergies: Coded Allergies: VANCOMYCIN (Verified Allergy, Unknown, 11/12/16) Patient History Past Medical History: see triage record Pertinent Family History: none Reviewed Nursing Documentation: PMH: Agreed, PSxH: Agreed (BOWEN PUGA) Nursing Documentation-PMH Hx Cardiac Problems: Yes Hx Pacemaker: No - RT FOOT ULCER Hx Diabetes: Yes - Right great toe amputation Hx Cancer: No Hx Gastrointestinal Problems: No Hx Dialysis: No - "Renal problems" Hx Neurological Problems: No Hx Headaches: Yes (BOWEN PUGA) Review of Systems All Other Systems: negative except mentioned in HPI (BOWEN PUGA) Physical Exam Vital Signs Date Time Temp Pulse Resp B/P (MAP) Pulse Ox O2 Delivery O2 Flow Rate FiO2 06/25/17 14:47 97.7 95 16 90/61 100 Room Air Sp02 EP Interpretation: reviewed, normal General Appearance: no apparent distress, alert, GCS 15, non-toxic Head: normocephalic, atraumatic Eyes: bilateral eye normal inspection, bilateral eye PERRL ENT: hearing grossly normal, normal pharynx, no angioedema, normal voice Neck: full range of motion, supple/symm/no masses Musculoskeletal: normal range of motion, no calf tenderness, swelling - R knee , tender - R proximal tibia Neurologic: alert, oriented x3, responsive, motor strength/tone normal, sensory intact, speech normal Psychiatric: judgement/insight normal, memory normal, mood/affect normal, no suicidal/homicidal ideation Skin: normal color, no rash, warm/dry, well hydrated (BOWEN PUGA) Procedures Splinting Splinting : Consent: Verbal Location: R leg Pre-Made Type: knee immobilizer Pre-Proc Neuro Vasc Exam: normal Post-Proc Neuro Vasc Exam: normal Patient Tolerated: Well Complications: None (BOWEN PUGA) Medical Decision Making PA Attestation Dr. Fortune is my supervising physician. Patient management was discussed with my supervising physician (BOWEN PUGA) Diagnostic Impression: Primary Impression: Tibial plateau fracture, right Qualified Codes: S82.141A - Displaced bicondylar fracture of right tibia, initial encounter for closed fracture ER Course The patient is a 51-year-old male presenting for right knee pain Ddx considered include but not limited to sprain/strain, fracture, contusion, dislocation PE: NAD Right knee: Full active range of motion is intact. No ecchymosis. There is swelling to the right knee as well as tenderness to palpation over the anterior aspect and proximal tibia X-ray CT scan of the right knee show a depressed fracture of the tibial plateau Knee immobilizer is placed The patient is given a prescription for a knee brace so he may have passive range of motion. He was told he needs to put this on and her placed in knee immobilizer as soon as possible. He was also told he needs to follow up with orthopedics as soon as possible as he may need surgery for this. Is given prescription for pain medication. ER precautions are given (BOWEN PUGA) ER Course I have reviewed the PA's interpretation of Xray results and agree with findings. D/W orthopedic surgeon Dr Muñoz regarding patient's case, patient OK to be sent home with knee immobilizer and outpatient ortho fu. injury occured >48 hours ago , also compartments are very soft (Tao Fortune M.D.) Other X-Ray Diagnostic Results Other X-Ray Diagnostic Results : X-Ray ordered: R knee # of Views/Limited Vs Complete: 3 View Indication: Pain EP Interpretation: Yes PA Xray: Interpretation reviewed, by supervising MD, and agrees with findings. Interpretation: other - Depressed tibial fracture Impression: Other - Tibia fracture Electronically Signed by: Bowen Puga PA-C (BOWEN PUGA) CT/MRI/US Diagnostic Results CT/MRI/US Diagnostic Results : Imaging Test Ordered: CT R knee Impression Right knee depressed tibial (BOWEN PUGA) Last Vital Signs Date Time Temp Pulse Resp B/P (MAP) Pulse Ox O2 Delivery O2 Flow Rate FiO2 06/25/17 17:17 99 18 111/69 98 Room Air 06/25/17 14:47 97.7 Status: improved (BOWEN PUGA) Disposition: HOME, SELF-CARE Condition: Improved Scripts Hydrocodone Bit/Acetaminophen 5-325* (NORCO 5-325 TABLET*) 1 Each Tablet 1 TAB ORAL Q6HR Y for For Pain, #10 TAB Prov: BOWEN PUGA 06/25/17 Leg Brace (KNEE BRACE) 1 Each Each EACH MC, #1 Prov: BOWEN PUGA.Jomar. 06/25/17 Patient Instructions: Displaced Tibial Plateau Fracture Additional Instructions: I discussed my findings with the patient. All questions and concerns have been answered. Treatment and medication compliance have been addressed. The patient needs to followup with his primary doctor soon as possible. He needs to see orthopedics as soon as possible. He was told this may need surgery. We are getting a prescription for a knee brace. Please remove the knee immobilizer that was placed in the emergency department and replaced it with this new knee brace. BOWEN PUGA Jun 25, 2017 19:43 Tao Fortune M.D. Jul 05, 2017 03:07
--- NOTE | 2017-06-26 08:54 | Diagnostic Imaging Report ---
Indication: PAIN Technique: 3 views of the right knee Comparison: None Findings:Is a bipartite patella. No acute fractures. No dislocations. There is a bipartite patella. There is a fracture deformity of the lateral tibial plateau. Fracture lines are present some possibly acute. There is equivocally a small suprapatellar effusion. The joint spaces are preserved. Impression:Acute versus subacute lateral tibial plateau fracture. Other findings as noted This agrees with the preliminary interpretation provided by the emergency room physician
--- NOTE | 2017-06-26 08:58 | Diagnostic Imaging Report ---
Indication: PAIN right knee pain status post mechanical fall last Monday Technique: No IV contrast utilized, per trauma protocol Spiral acquisitions obtained through the right knee Multiplanar reconstructions were generated. Total dose length product 390 mGycm. CTDIvol(s) 15 mGy. Radiation dose was minimized using automated exposure control Comparison: Plain radiograph thick and one half hour earlier Findings: There is a comminuted fracture of the lateral tibial plateau. This is slightly depressed inferiorly by 7-10 mm. There is a small joint effusion. There is a bipartite patella. No other acute fractures or dislocations demonstrated. There is considerable edema of the surrounding subcutaneous fat, particularly anteriorly and laterally. Impression: Positive for lateral tibial plateau fracture Associated joint effusion and surrounding soft tissue edema This agrees with the preliminary interpretation provided overnight by [facility] teleradiology service. The CT scanner at [facility] is accredited by the [employer] and the scans are performed using protocols designed to limit radiation exposure to as low as reasonably achievable to attain images of sufficient resolution adequate for diagnostic evaluation.
== END 2017-06-25 17:15 | disposition home or self-care (01) ==
LOC: EMR 15:13
DX: S82.141A Displaced bicondylar fracture of right tibia, initial encounter for closed fracture (principal); W01.0XXA Fall on same level from slipping, tripping and stumbling without subsequent striking against object, initial encounter; Y92.89 Other specified places as the place of occurrence of the external cause; Z88.1 Allergy status to other antibiotic agents; E11.9 Type 2 diabetes mellitus without complications; Z89.411 Acquired absence of right great toe
CPT/HCPCS: 73562; 82962; 96372; 99284; J1815

== ENCOUNTER 2018-05-29 12:50 | Outpatient (RCR) | payer MEDICARE, MEDICAID ==
[~2018-05-29] VITALS: Ht 165.1 cm; Wt 67.1 kg
[~2018-05-29 12:50] MED LIST changes: +KNEE BRACE1 EACH MC; +LANTUS SOL100 UNIT/1 SUBQ; +NORCO 5-325 TA1 EAC1 ORAL
[2018-05-30] MEDS ORDERED: Lidocaine HCl 2% Jelly 6ml Tube TOPIC ONE (16:15)
== END 2018-06-22 | disposition home or self-care (01) ==
LOC: WCC 12:50
DX: L97.513 Non-pressure chronic ulcer of other part of right foot with necrosis of muscle (principal); E11.622 Type 2 diabetes mellitus with other skin ulcer; E11.43 Type 2 diabetes mellitus with diabetic autonomic (poly)neuropathy; L97.411 Non-pressure chronic ulcer of right heel and midfoot limited to breakdown of skin; S90.821D Blister (nonthermal), right foot, subsequent encounter; E11.42 Type 2 diabetes mellitus with diabetic polyneuropathy; E11.621 Type 2 diabetes mellitus with foot ulcer; I10 Essential (primary) hypertension; E78.5 Hyperlipidemia, unspecified; Z89.411 Acquired absence of right great toe; Z79.4 Long term (current) use of insulin
CPT/HCPCS: G0463 ×2

== ENCOUNTER 2018-06-26 13:17 | Outpatient (RCR) | payer MEDICARE, MEDICAID | END 2018-07-23 | disposition home or self-care (01) | LOC: WCC 13:17 | DX: L97.411 Non-pressure chronic ulcer of right heel and midfoot limited to breakdown of skin (principal); S90.821D Blister (nonthermal), right foot, subsequent encounter; E11.42 Type 2 diabetes mellitus with diabetic polyneuropathy; E11.621 Type 2 diabetes mellitus with foot ulcer; E11.9 Type 2 diabetes mellitus without complications; M19.90 Unspecified osteoarthritis, unspecified site; I10 Essential (primary) hypertension; E78.5 Hyperlipidemia, unspecified; Z89.411 Acquired absence of right great toe | CPT/HCPCS: 11055; G0463 ==

== ENCOUNTER 2019-10-29 13:45 | Inpatient (IN) | payer MEDICARE, MEDICAID ==
[~2019-10-29] VITALS: Ht 162.6 cm; Wt 64.0 kg
--- NOTE | 2019-10-29 13:55 | NUR ---
ED Nurse Note: Patient was BIBA RA 94 from home due to ALOC, hypoglycemia. Per associate professor of media arts pt's BS was less than 20 at home, D10% 250mL was given. Patient's BS 124 at triage. Patient presented lethargic, weak, AAO x2, diaphoretic. Patient was connected to the monitor, D50% was given.
--- NOTE | 2019-10-29 14:00 | NUR ---
ED Nurse Note: blood specimens sent to lab.
--- NOTE | 2019-10-29 14:03 | Emergency Room Report ---
History of Present Illness General Chief Complaint: Altered Level of Consciousness Source: Patient Present Illness HPI Disclaimer: Please note that this report is being documented using DRAGON technology. This can lead to erroneous entry secondary to incorrect interpretation by the dictating instrument. HPI: 54-year-old male with a history of diabetes presents for altered mental status. EMS arrived at the patient's home checking a blood sugar that was reading is less than 20 on their fingerstick monitor. He was given D10 which improved sugars past 100. He remains somnolent, confused though awake and responsive. On arrival he was slumped over in his gurney, mumbling and somewhat difficult to arouse. Repeat fingerstick showed a blood sugar of 24. He was given D50 which again improved his mentation. He states he checked his blood sugar this morning getting a reading approximately 120. He injected himself with 20 units of Lantus as he typically does but only had a cup of coffee for breakfast and has not eaten anything since last night. Does not take any other glucose controlling medications. Currently complaining of a mild headache and some nausea but denies any recent fever, chills, chest pain, shortness of breath, cough, sore throat, nasal congestion, vomiting, diarrhea, dysuria or hematuria. PMH: Diabetes PSH: Diabetic wound care Allergies: Vancomycin Social Hx: Denies drug or alcohol abuse Allergies: Coded Allergies: VANCOMYCIN (Verified Allergy, Unknown, 11/12/16) COVID-19 Screening Contact w/high risk pt: No Recent Travel to affected area: No Experienced COVID-19 symptoms?: No Nursing Documentation-PMH Hx Cardiac Problems: Yes Hx Hypertension: Yes Hx Pacemaker: No - RT FOOT ULCER Hx Diabetes: Yes Hx Cancer: No Hx Gastrointestinal Problems: No Hx Dialysis: No - "Renal problems" Hx Neurological Problems: No Hx Headaches: Yes Review of Systems All Other Systems: negative except mentioned in HPI Physical Exam Vital Signs Date Time Temp Pulse Resp B/P (MAP) Pulse Ox O2 Delivery O2 Flow Rate FiO2 10/29/19 13:41 98.2 86 20 160/94 (116) 98 Room Air General: Awake and alert, no acute distress HEENT: NC/AT. EOMI. anicteric sclera. Pterygium in the right eye. Neck: Supple, trachea midline Chest Wall: No tenderness, no deformity Cardiovascular: RRR. S1 and S2 normal. No murmur appreciated Resp: Normal work of breathing. No cough, wheezing or crackles appreciated Abdomen: Abdomen is soft, nondistended. Nontender Skin: Intact. No abrasions, laceration or rash over the exposed skin MSK: Normal tone and bulk. Moving all extremities. No obvious deformity. Neuro: Awake and alert. Mentating appropriately. Moving all extremities. Procedures Critical Care Time Critical Care Time Total critical care time: Approximately 31 minutes Due to a high probability of clinically significant, life threatening deterioration, the patient required the highest level of preparedness to intervene emergently and I personally spent this critical care time directly and personally managing the patient. This critical care time included obtaining a history, examining the patient, pulse oximetry, ordering and reviewing studies , ordering treatments, evaluating response to treatment and updating management plan as needed, frequent reassessment and discussion with other providers as well as arranging for ultimate disposition. This critical to care time was performed to assess and manage the high probability of life-threatening deterioration that could result in multiorgan failure. This critical care time is separate from the separately billable procedures and treating other patients. Medical Decision Making Diagnostic Impression: Primary Impression: Altered level of consciousness Additional Impression: Hypoglycemia ER Course 54-year-old male presents for altered mental status found to be hypoglycemic by EMS and again on arrival. Patient's mentation is improving after receiving D50 and D10 prior to arrival however his blood sugar keeps dropping. May be because of the exogenous insulin that he is taken, the lack of eating or possible dehydration, electrolyte abnormality, acute kidney failure as he has had in the past. He is currently awake, alert with stable vital signs. Will require broad labs, IV fluids, close monitoring of blood sugar levels. Laboratory Tests Test 10/29/19 14:00 White Blood Count 7.8 K/UL (4.8-10.8) Red Blood Count 3.35 M/UL (4.70-6.10) L Hemoglobin 10.1 G/DL (14.2-18.0) L Hematocrit 28.9 % (42.0-52.0) L Mean Corpuscular Volume 86 FL (80-99) Mean Corpuscular Hemoglobin 30.1 PG (27.0-31.0) Mean Corpuscular Hemoglobin Concent 34.8 G/DL (32.0-36.0) Red Cell Distribution Width 11.6 % (11.6-14.8) Platelet Count 226 K/UL (150-450) Mean Platelet Volume 5.1 FL (6.5-10.1) L Neutrophils (%) (Auto) 56.4 % (45.0-75.0) Lymphocytes (%) (Auto) 28.2 % (20.0-45.0) Monocytes (%) (Auto) 6.2 % (1.0-10.0) Eosinophils (%) (Auto) 7.2 % (0.0-3.0) H Basophils (%) (Auto) 2.0 % (0.0-2.0) Sodium Level 139 MMOL/L (136-145) Potassium Level 3.5 MMOL/L (3.5-5.1) Chloride Level 107 MMOL/L (98-107) Carbon Dioxide Level 21 MMOL/L (21-32) Anion Gap 11 mmol/L (5-15) Blood Urea Nitrogen 40 mg/dL (7-18) H Creatinine 1.9 MG/DL (0.55-1.30) H Estimated Glomerular Filtration Rate 37.0 mL/min (>60) Glucose Level 29 MG/DL (74-106) *L Proinsulin Pending Calcium Level 9.5 MG/DL (8.5-10.1) Total Bilirubin 0.3 MG/DL (0.2-1.0) Aspartate Amino Transferase (AST) 52 U/L (15-37) H Alanine Aminotransferase (ALT) 40 U/L (12-78) Alkaline Phosphatase 163 U/L (46-116) H Ammonia 27 umol/L (11-32) Total Protein 7.8 G/DL (6.4-8.2) Albumin 3.5 G/DL (3.4-5.0) Globulin 4.3 g/dL Albumin/Globulin Ratio 0.8 (1.0-2.7) L Thyroid Stimulating Hormone (TSH) 3.614 uiU/mL (0.358-3.740) Salicylates Level 0.9 ug/mL (2.8-20) L Acetaminophen Level < 2 MCG/ML (10-30) L Serum Alcohol < 3 mg/dL Reevaluation Time: 15:10 Last Vital Signs Date Time Temp Pulse Resp B/P (MAP) Pulse Ox O2 Delivery O2 Flow Rate FiO2 10/29/19 13:41 98.2 86 20 160/94 (116) 98 Room Air Reevaluation Impression Glucose level continues to drop even after drinking orange juice, eating and receiving initial dose of D50 here. Will give another dose of D50. Patient will require admission for monitoring of his glucose levels overnight. Other labs are largely within normal limits but show some evidence of chronic kidney disease which is in his medical history. No significant change from prior levels in 2017. Will continue to hydrate Disposition: ADMITTED INPATIENT Condition: Serious Miguel Gallegos MD Oct 29, 2019 14:03
--- NOTE | 2019-10-29 14:20 | NUR ---
ED Nurse Note: sandwich and orange juice provided
[2019-10-29 14:30] LABS: EOSINOPHILS % (AUTO) 7.2 % (0.0-3.0); HEMATOCRIT 28.9 % (42.0-52.0); HEMOGLOBIN 10.1 G/DL (14.2-18.0); LYMPHOCYTES % (AUTO) 28.2 % (20.0-45.0); MEAN CORPUSCULAR VOLUME 86 FL (80-99); MONOCYTES % (AUTO) 6.2 % (1.0-10.0); NEUTROPHILS % (AUTO) 56.4 % (45.0-75.0); PLATELET COUNT 226 K/UL (150-450); RED BLOOD COUNT 3.35 M/UL (4.70-6.10); RED CELL DISTRIBUTION WIDTH 11.6 % (11.6-14.8); WHITE BLOOD COUNT 7.8 K/UL (4.8-10.8)
[2019-10-29] MEDS ORDERED: Acetaminophen 500mg (ES) tab ORAL ONE (14:30)
[2019-10-29 14:35] LABS: ALANINE AMINOTRANSFERASE 40 U/L (12-78); ALBUMIN 3.5 G/DL (3.4-5.0); ALBUMIN/GLOBULIN RATIO 0.8 (1.0-2.7); ALKALINE PHOSPHATASE 163 U/L (46-116); ANION GAP 11 mmol/L (5-15); ASPARTATE AMINO TRANSFERASE 52 U/L (15-37); BILIRUBIN,TOTAL 0.3 MG/DL (0.2-1.0); BLOOD UREA NITROGEN 40 mg/dL (7-18); CALCIUM 9.5 MG/DL (8.5-10.1); CARBON DIOXIDE 21 MMOL/L (21-32); CHLORIDE 107 MMOL/L (98-107); CREATININE 1.9 MG/DL (0.55-1.30); POTASSIUM 3.5 MMOL/L (3.5-5.1); SODIUM 139 MMOL/L (136-145)
[2019-10-29 14:44] LABS: AMMONIA 27 umol/L (11-32)
--- NOTE | 2019-10-29 17:30 | NUR ---
ED Nurse Note: Patient was admited to MS due to hypoglycemia. Patient was transfered to the unit via gurney, with all belongings, patient has IV accsessn on L AC 20 ga.
--- NOTE | 2019-10-29 17:30 | NUR ---
NURSE NOTES Received patient from ER via gurney , patient awake, alert, oriented x3 no sign of distress , HL patent, admission routine care rendered, oriented to the unit , plan of care was discussed verbalized understanding, 4 P's in progress , on fall precaution call light w/n easy reach jonnie oconnell
[2019-10-29 17:35] VITALS: BP 154/93
--- NOTE | 2019-10-29 19:30 | NUR ---
NURSE NOTES ENDORSED TO VICENTE GARIBAY
--- NOTE | 2019-10-29 19:49 | NUR ---
NURSE NOTES: Patient awake in bed, no SOB noted, on minimal pain at the moment. Instructed the use of call light for assistance. Bed in lowest, lock engaged and alarm on. Will continue to monitor.
[2019-10-29 20:00] VITALS: BP 158/103
[2019-10-30] VITALS: BP 124/83
[2019-10-30 04:00] VITALS: BP 125/5
[2019-10-30 06:23] LABS: BASOPHILS % (AUTO) 1.9 % (0.0-2.0); EOSINOPHILS % (AUTO) 5.6 % (0.0-3.0); HEMATOCRIT 28.8 % (42.0-52.0); LYMPHOCYTES % (AUTO) 22.4 % (20.0-45.0); MEAN CORPUSCULAR VOLUME 85 FL (80-99); MONOCYTES % (AUTO) 5.3 % (1.0-10.0); NEUTROPHILS % (AUTO) 64.8 % (45.0-75.0); PLATELET COUNT 228 K/UL (150-450); RED BLOOD COUNT 3.39 M/UL (4.70-6.10); RED CELL DISTRIBUTION WIDTH 11.7 % (11.6-14.8); WHITE BLOOD COUNT 7.9 K/UL (4.8-10.8)
[2019-10-30 06:44] LABS: ALANINE AMINOTRANSFERASE 43 U/L (12-78); ALBUMIN/GLOBULIN RATIO 0.8 (1.0-2.7); ALKALINE PHOSPHATASE 147 U/L (46-116); ANION GAP 9 mmol/L (5-15); ASPARTATE AMINO TRANSFERASE 59 U/L (15-37); BILIRUBIN,TOTAL 0.3 MG/DL (0.2-1.0); BLOOD UREA NITROGEN 33 mg/dL (7-18); CALCIUM 8.6 MG/DL (8.5-10.1); CARBON DIOXIDE 23 MMOL/L (21-32); CHLORIDE 105 MMOL/L (98-107); CREATININE 1.8 MG/DL (0.55-1.30); POTASSIUM 4.8 MMOL/L (3.5-5.1); SODIUM 137 MMOL/L (136-145)
--- NOTE | 2019-10-30 07:15 | NUR ---
HAND-OFF: Report given to DEBORAH Soriano and DEBORAH Yen.
--- NOTE | 2019-10-30 07:21 | General Progress Note ---
Assessment/Plan Problem List: (1) Poorly controlled diabetes mellitus ICD Codes: E11.9 - Poorly controlled diabetes mellitus SNOMED: 39837539 (2) Hypoglycemia ICD Codes: E16.2 - Hypoglycemia, unspecified SNOMED: 753354650 (3) Diabetic foot ulcer Assessment/Plan: no need for basal insulin for now Novolog sliding scale ac / hs hypoglycemia protocol Subjective Allergies: Coded Allergies: VANCOMYCIN (Verified Allergy, Unknown, 11/12/16) All Systems: reviewed and negative except above Subjective presented with severe hypoglycemia and AMS glucose 29 on presentation on basal - bolus insulin regimen at home glucose stayed stable after admission Item Value Date Time Bedside Blood Glucose 140 mg/dl H 10/30/19 0620 Bedside Blood Glucose 176 mg/dl H 10/29/19 2100 Bedside Blood Glucose 144 mg/dl H 10/29/19 1630 Bedside Blood Glucose 125 mg/dl H 10/29/19 1414 Objective Last 24 Hour Vital Signs Date Time Temp Pulse Resp B/P (MAP) Pulse Ox O2 Delivery O2 Flow Rate FiO2 10/30/19 04:00 97.8 70 18 125/5 (45) 98 10/30/19 00:00 97.0 80 18 124/83 (97) 96 10/29/19 21:00 Room Air 10/29/19 20:00 97.2 83 19 158/103 (121) 98 10/29/19 17:35 98.0 79 18 154/93 (113) 97 10/29/19 17:31 Room Air 10/29/19 17:24 98.2 89 22 10/29/19 15:01 98.2 10/29/19 14:05 98.2 89 22 10/29/19 14:05 89 22 10/29/19 13:41 98.2 86 20 160/94 (116) 98 Room Air Intake and Output 10/29/19 10/30/19 19:00 07:00 Intake Total 1 ml Balance 1 ml Intake Oral 1 ml # Voids 3 # Bowel Movements 1 Laboratory Tests 10/29/19 14:00: White Blood Count 7.8, Red Blood Count 3.35L, Hemoglobin 10.1L, Hematocrit 28.9L , Mean Corpuscular Volume 86, Mean Corpuscular Hemoglobin 30.1, Mean Corpuscular Hemoglobin Concent 34.8, Red Cell Distribution Width 11.6, Platelet Count 226, Mean Platelet Volume 5.1L, Neutrophils (%) (Auto) 56.4, Lymphocytes ( %) (Auto) 28.2, Monocytes (%) (Auto) 6.2, Eosinophils (%) (Auto) 7.2H, Basophils (%) (Auto) 2.0, Sodium Level 139, Potassium Level 3.5, Chloride Level 107, Carbon Dioxide Level 21, Anion Gap 11, Blood Urea Nitrogen 40H, Creatinine 1.9H, Estimat Glomerular Filtration Rate 37.0, Glucose Level 29*L, Proinsulin [ Pending], Calcium Level 9.5, Total Bilirubin 0.3, Aspartate Amino Transf (AST/ SGOT) 52H, Alanine Aminotransferase (ALT/SGPT) 40, Alkaline Phosphatase 163H, Ammonia 27, Total Protein 7.8, Albumin 3.5, Globulin 4.3, Albumin/Globulin Ratio 0.8L, Thyroid Stimulating Hormone (TSH) 3.614, Salicylates Level 0.9L, Acetaminophen Level < 2L, Serum Alcohol < 3 10/30/19 05:25: White Blood Count 7.9, Red Blood Count 3.39L, Hemoglobin 10.0L, Hematocrit 28.8L , Mean Corpuscular Volume 85, Mean Corpuscular Hemoglobin 29.5, Mean Corpuscular Hemoglobin Concent 34.7, Red Cell Distribution Width 11.7, Platelet Count 228, Mean Platelet Volume 5.7L, Neutrophils (%) (Auto) 64.8, Lymphocytes ( %) (Auto) 22.4, Monocytes (%) (Auto) 5.3, Eosinophils (%) (Auto) 5.6H, Basophils (%) (Auto) 1.9, Sodium Level 137, Potassium Level 4.8, Chloride Level 105, Carbon Dioxide Level 23, Anion Gap 9, Blood Urea Nitrogen 33H, Creatinine 1.8H, Estimat Glomerular Filtration Rate 39.4, Glucose Level 139#H, Calcium Level 8.6, Total Bilirubin 0.3, Aspartate Amino Transf (AST/SGOT) 59H, Alanine Aminotransferase (ALT/SGPT) 43, Alkaline Phosphatase 147H, Total Protein 7.0, Albumin 3.0L, Globulin 4.0, Albumin/Globulin Ratio 0.8L Height (Feet): 5 Height (Inches): 4.00 Weight (Pounds): 141 General Appearance: no apparent distress Neck: normal alignment Cardiovascular: normal rate Respiratory/Chest: lungs clear Abdomen: normal bowel sounds Objective Current Medications Medications (Trade) Dose Ordered Sig/Julian Route PRN Reason Start Time Stop Time Status Last Admin Dose Admin Acetaminophen (Tylenol) 650 mg Q4H PRN ORAL Mild Pain (Pain Scale 1-3) 10/29/19 19:00 11/28/19 18:59 Jaycob Duvall MD Oct 30, 2019 07:21
[2019-10-30 08:00] VITALS: BP 131/77
--- NOTE | 2019-10-30 09:51 | Consultation ---
History of Present Illness General Chief Complaint: Altered Level of Consciousness Present Illness Allergies: Coded Allergies: VANCOMYCIN (Verified Allergy, Unknown, 11/12/16) Medication History Scheduled Atorvastatin Calcium* (Lipitor*), 20 MG ORAL QHS Insulin Aspart (Novolog Flexpen), 7 ACHS, (Reported) Insulin Detemir (Levemir Flexpen), 24 SUBQ DAILY, (Reported) Insulin Glargine (Lantus), 15 SUBQ BID, (Reported) Levofloxacin* (Levaquin*), 500 MG ORAL DAILY Scheduled PRN Acetaminophen With Codeine (T#4) (Tylenol #4 Tab*), 1 TAB ORAL Q6H PRN for For Pain Hydrocodone Bit/Acetaminophen 5-325* ([place] 5-325 Tablet*), 1 TAB ORAL Q6HR PRN for For Pain Durable Medical Equipment Leg Brace (Knee Brace), EACH , (DME) Patient History Healthcare decision maker Resuscitation status Full Code Advanced Directive on File No Physical Exam Last 24 Hour Vital Signs Date Time Temp Pulse Resp B/P (MAP) Pulse Ox O2 Delivery O2 Flow Rate FiO2 10/30/19 04:00 97.8 70 18 125/5 (45) 98 10/30/19 00:00 97.0 80 18 124/83 (97) 96 10/29/19 21:00 Room Air 10/29/19 20:00 97.2 83 19 158/103 (121) 98 10/29/19 17:35 98.0 79 18 154/93 (113) 97 10/29/19 17:31 Room Air 10/29/19 17:24 98.2 89 22 10/29/19 15:01 98.2 10/29/19 14:05 98.2 89 22 10/29/19 14:05 89 22 10/29/19 13:41 98.2 86 20 160/94 (116) 98 Room Air Intake and Output 10/29/19 10/30/19 19:00 07:00 Intake Total 1 ml Balance 1 ml Intake Oral 1 ml # Voids 3 # Bowel Movements 1 Laboratory Tests Test 10/29/19 14:00 10/30/19 05:25 White Blood Count 7.8 K/UL (4.8-10.8) 7.9 K/UL (4.8-10.8) Red Blood Count 3.35 M/UL (4.70-6.10) L 3.39 M/UL (4.70-6.10) L Hemoglobin 10.1 G/DL (14.2-18.0) L 10.0 G/DL (14.2-18.0) L Hematocrit 28.9 % (42.0-52.0) L 28.8 % (42.0-52.0) L Mean Corpuscular Volume 86 FL (80-99) 85 FL (80-99) Mean Corpuscular Hemoglobin 30.1 PG (27.0-31.0) 29.5 PG (27.0-31.0) Mean Corpuscular Hemoglobin Concent 34.8 G/DL (32.0-36.0) 34.7 G/DL (32.0-36.0) Red Cell Distribution Width 11.6 % (11.6-14.8) 11.7 % (11.6-14.8) Platelet Count 226 K/UL (150-450) 228 K/UL (150-450) Mean Platelet Volume 5.1 FL (6.5-10.1) L 5.7 FL (6.5-10.1) L Neutrophils (%) (Auto) 56.4 % (45.0-75.0) 64.8 % (45.0-75.0) Lymphocytes (%) (Auto) 28.2 % (20.0-45.0) 22.4 % (20.0-45.0) Monocytes (%) (Auto) 6.2 % (1.0-10.0) 5.3 % (1.0-10.0) Eosinophils (%) (Auto) 7.2 % (0.0-3.0) H 5.6 % (0.0-3.0) H Basophils (%) (Auto) 2.0 % (0.0-2.0) 1.9 % (0.0-2.0) Sodium Level 139 MMOL/L (136-145) 137 MMOL/L (136-145) Potassium Level 3.5 MMOL/L (3.5-5.1) 4.8 MMOL/L (3.5-5.1) Chloride Level 107 MMOL/L (98-107) 105 MMOL/L (98-107) Carbon Dioxide Level 21 MMOL/L (21-32) 23 MMOL/L (21-32) Anion Gap 11 mmol/L (5-15) 9 mmol/L (5-15) Blood Urea Nitrogen 40 mg/dL (7-18) H 33 mg/dL (7-18) H Creatinine 1.9 MG/DL (0.55-1.30) H 1.8 MG/DL (0.55-1.30) H Estimat Glomerular Filtration Rate 37.0 mL/min (>60) 39.4 mL/min (>60) Glucose Level 29 MG/DL (74-106) *L 139 MG/DL (74-106) #H Proinsulin Pending Calcium Level 9.5 MG/DL (8.5-10.1) 8.6 MG/DL (8.5-10.1) Total Bilirubin 0.3 MG/DL (0.2-1.0) 0.3 MG/DL (0.2-1.0) Aspartate Amino Transf (AST/SGOT) 52 U/L (15-37) H 59 U/L (15-37) H Alanine Aminotransferase (ALT/SGPT) 40 U/L (12-78) 43 U/L (12-78) Alkaline Phosphatase 163 U/L (46-116) H 147 U/L (46-116) H Ammonia 27 umol/L (11-32) Total Protein 7.8 G/DL (6.4-8.2) 7.0 G/DL (6.4-8.2) Albumin 3.5 G/DL (3.4-5.0) 3.0 G/DL (3.4-5.0) L Globulin 4.3 g/dL 4.0 g/dL Albumin/Globulin Ratio 0.8 (1.0-2.7) L 0.8 (1.0-2.7) L Thyroid Stimulating Hormone (TSH) 3.614 uiU/mL (0.358-3.740) Salicylates Level 0.9 ug/mL (2.8-20) L Acetaminophen Level < 2 MCG/ML (10-30) L Serum Alcohol < 3 mg/dL Hemoglobin A1c 8.0 % (4.3-6.0) H Height (Feet): 5 Height (Inches): 4.00 Weight (Pounds): 141 Medications Current Medications Medications (Trade) Dose Ordered Sig/Julian Route PRN Reason Start Time Stop Time Status Last Admin Dose Admin Acetaminophen (Tylenol) 650 mg Q4H PRN ORAL Mild Pain (Pain Scale 1-3) 10/29/19 19:00 11/28/19 18:59 Dextrose (Dextrose 50%) 25 ml Q30M PRN IV Hypoglycemia 10/30/19 07:30 01/28/20 07:29 Dextrose (Dextrose 50%) 50 ml Q30M PRN IV Hypoglycemia 10/30/19 07:30 01/28/20 07:29 Insulin Aspart (NovoLOG) BEFORE MEALS AND HS SUBQ 10/30/19 11:30 01/28/20 11:29 Assessment/Plan Assessment/Plan: Hematology Consultation Chief Complaint: Altered Level of Consciousness DOS: 10/31/2019 REQ MD: Joel Trinh RFC: Anemia evaluation ID 54-year-old male with a history of diabetes presents for altered mental status. EMS arrived at the patient's home checking a blood sugar that was reading is less than 20 on their fingerstick monitor. He was given D10 which improved sugars past 100. He remains somnolent, confused though awake and responsive. On arrival he was slumped over in his gurney, mumbling and somewhat difficult to arouse. Repeat fingerstick showed a blood sugar of 24. He was given D50 which again improved his mentation. He states he checked his blood sugar this morning getting a reading approximately 120. He injected himself with 20 units of Lantus as he typically does but only had a cup of coffee for breakfast and has not eaten anything since last night. Does not take any other glucose controlling medications. Currently complaining of a mild headache and some nausea but denies any recent fever, chills, chest pain, shortness of breath, cough, sore throat, nasal congestion, vomiting, diarrhea, dysuria or hematuria. This history obtained from the er, hematology consulted for anemia evaluation PMH: Diabetes, Arthritis PSH: Diabetic wound care, R ankle surgery Allergies: Vancomycin Social Hx: ++ prior etoh use, but now none Allergies: VANCOMYCIN (Verified Allergy, Unknown, 11/12/16) COVID-19 Screening Contact w/high risk pt: No Recent Travel to affected area: No Experienced COVID-19 symptoms?: No Nursing Documentation-PMH Hx Cardiac Problems: Yes Hx Hypertension: Yes Hx Pacemaker: No - RT FOOT ULCER Hx Diabetes: Yes Hx Cancer: No Hx Gastrointestinal Problems: No Hx Dialysis: No - "Renal problems" Hx Neurological Problems: No Hx Headaches: Yes ROS (review of systems): Constitutional: No fever, no chills, no night sweats, no fatigue Skin: No rashes, lumps, itchiness, dryness HEENT: No DAVIS, ear ache, visual changes, double vision, nosebleeds Breasts: No lumps, pain, discharge Pulmonary: No cough, sputum, shortness of breath, coughing up blood Cardiovascular: No chest pain, tightness, palpitations, syncope, PND GI: No nausea, vomiting, diarrhea, melena, hematochezia, change in appetite, : No dysuria, frequency, urgency, urinary incontinence, foamy urine Musculoskeletal: No joint swelling or muscle pain, trauma, back pain Neurologic: No dizziness, fainting, seizures, changes in smell or taste Psychiatric: No nervousness, stress, or depression, anxiety, hallucinations Endocrine: No weight change, heat or cold intolerance, tremor, insomnia Physical Exam: Vitals: reviewed General: NAD HEENT: nc, at Neck: supple Chest: clear breath sounds bilaterally Cardiovascular: RRR, no s3, s4 Abdomen: soft, nontender, nd Extremities: no cce, normal range of motion Neuro: alert and oriented today Labs: noted Imaging: reviewed Assessment and Recs # Anemia of chronic disease due to underlying chronic medical issues, multifactorial v Gi bleed --> Anemia workup has been ordered, rule out gi bleed --> No evidence of hemolysis is noted, peripheral smear has been reviewed. --> Hgb goal >7. Transfuse prn. --> Epogen or iron at this time is not particularly indicated --> Medications have been reviewed --> low threshold for gi evaluation in case has occult + --> bone marrow biopsy is not indicated given the other more likely causes # Altered level of consciousness --> likely related to hypoglecmia --> meds changed as per endo # Hypoglycemia --> d5 w as needed, with insulin # Acute kidney injury --> cr 1.9-->1.8 --> on ivfs as needed # Dvt ppx scds The timing of this note does not necessarily reflect the time of the patient was seen. Greatly appreciate consultation. Tobi Matthews MD Oct 30, 2019 09:51
[2019-10-30 10:39] LABS: FERRITIN 171 NG/ML (8-388)
--- NOTE | 2019-10-30 10:45 | Consultation ---
Consult Note Consult Note Asked to evaluate at the request of Dr. Davis for renal failure Patient referred to emergency room for altered level of consciousness HPI: 54-year-old male with a history of diabetes presents for altered mental status. EMS arrived at the patient's home checking a blood sugar that was reading is less than 20 on their fingerstick monitor. He was given D10 which improved sugars past 100. He remains somnolent, confused though awake and responsive. On arrival he was slumped over in his gurney, mumbling and somewhat difficult to arouse. Repeat fingerstick showed a blood sugar of 24. He was given D50 which again improved his mentation. He states he checked his blood sugar this morning getting a reading approximately 120. He injected himself with 20 units of Lantus as he typically does but only had a cup of coffee for breakfast and has not eaten anything since last night. Does not take any other glucose controlling medications. Currently complaining of a mild headache and some nausea but denies any recent fever, chills, chest pain, shortness of breath, cough, sore throat, nasal congestion, vomiting, diarrhea, dysuria or hematuria. PMH: Diabetes PSH: Diabetic wound care Allergies: Vancomycin COVID-19 Screening Contact w/high risk pt: No Recent Travel to affected area: No Experienced COVID-19 symptoms?: No Hx Cardiac Problems: Yes Hx Hypertension: Yes Hx Pacemaker: No - RT FOOT ULCER Hx Diabetes: Yes Hx Dialysis: No - "Renal problems" Hx Headaches: Yes Patient seen in room 411 bed 1 Record's data reviewed Assessment/Plan Encephalopathy most likely secondary to hypoglycemic episode Renal failure likely acute superimposed on chronic renal failure Diabetic nephropathy No urine analysis available yet Anemia Monitor renal parameters Hydrate as possible Anemia work-up Urine analysis-urine studies Keep the blood pressure and blood sugar in check Per orders Emir Keith MD Oct 30, 2019 10:45
[2019-10-30 10:51] LABS: % IRON SATURATION 19 % (15-50); IRON 31 ug/dL (50-175); TOTAL IRON BINDING CAPACITY 167 ug/dL (250-450)
[2019-10-30] MEDS ORDERED: HydrALAZINE 25mg tab ORAL PRN (11:00)
[2019-10-30 11:10] LABS: CHOLESTEROL 153 MG/DL (< 200); HDL CHOLESTEROL 54 MG/DL (40-60); TRIGLYCERIDES 151 MG/DL (30-150)
--- NOTE | 2019-10-30 11:50 | NUR ---
NURSE NOTES: RN collected urine and stool specimen and sent it to lab.
[2019-10-30 12:00] VITALS: BP 124/79
[2019-10-30] MEDS: NovoLOG Insulin Flexpen SUBQ SCH ×3 (12:04→21:00)
--- NOTE | 2019-10-30 12:11 | Diagnostic Imaging Report ---
Indication: Leg pain Technique: Grayscale and duplex images of the bilateral lower extremity veins Comparison: Findings: Bilaterally, grayscale and duplex images demonstrate no evidence of intraluminal thrombus. Normal phasic Doppler waveforms, demonstrating normal augmentation response and no evidence of valvular insufficiency. Greater saphenous vein(s) and tibial veins are patent. Normal compressibility. Impression: Negative for evidence of lower extremity deep venous thrombosis bilaterally
[2019-10-30 12:12] LABS: APPEARANCE,URINE CLEAR; BILIRUBIN, URINE NEGATIVE (NEGATIVE); COLOR,URINE PALE YELLOW; GLUCOSE, URINE (UA) 2+ (NEGATIVE); KETONES,URINE NEGATIVE (NEGATIVE); LEUKOCYTE ESTERASE ,URINE NEGATIVE (NEGATIVE); NITRITE,URINE NEGATIVE (NEGATIVE); PH,URINE 6 (4.5-8.0); PROTEIN,URINE 4+ (NEGATIVE); UROBILINOGEN,URINE NORMAL MG/DL (0.0-1.0)
--- NOTE | 2019-10-30 12:45 | NUR ---
CASE MANAGEMENT:INITIAL REVIEW 54 YR OLD MALE BIBA FROM HOME CC;ALTERED LEVEL OF CONSCIOUSNESS SI;HYPOGLYCEMIA. ALOC. 98.2 86 22 160/94 97% ON RA BG 29 (IN ER) BG <20 (EMT RESULT AT HOME) BUN 40 CR 1.9 AST 52 ALK PHOS 163 UA+ PROTEIN, GLUCOSE BILATERAL LEG VENOUS DUPLEX ~ Negative for evidence of lower extremity deep venous thrombosis bilaterally. IS;IVF D5W IV ACETAMINOPHEN PO ONCE ADMITTED TO MED SURG MED SURG STATUS DCP;PATIENT IS FROM HOME
[2019-10-30] MEDS: Docusate 100mg cap ORAL SCH ×2 (13:42→17:11)
[2019-10-30 16:00] VITALS: BP 137/92
--- NOTE | 2019-10-30 17:30 | NUR ---
NURSE NOTES: Patient refused to take docusate stating " I had bowel movement 2 times today. I don't think I need it now." No diarrhea noted.
--- NOTE | 2019-10-30 19:30 | NUR ---
HAND-OFF: Report given to Aria and endorsed plan of care.
--- NOTE | 2019-10-30 19:54 | NUR ---
NURSES NOTE: Met pt in bed, A/OX4, able to express needs. No outward s/s of distress noted. Breathing pattern is even and unlabored on RA. Pt denies pain at this time. IV RICHIE in tact, patent,
--- NOTE | 2019-10-30 20:31 | NUR ---
NURSES NOTE: Met pt in bed, A/O x4, able to express needs. Pt denies pain at this time. No outward s/s of distress noted. RICHIE iv intact, running IVF fluids according to emar. Breathing pattern is even and unlabored on RA. Accu checks in place. All due meds will be given. Bed at lowest level, call light within reach.
[2019-10-30] MEDS: Atorvastatin 20mg tab ORAL SCH (21:37)
[2019-10-31] VITALS: BP 121/81
[2019-10-31 04:00] VITALS: BP 125/88
--- NOTE | 2019-10-31 04:00 | History and Physical Report ---
DATE OF ADMISSION: 10/29/2019 HISTORY OF PRESENT ILLNESS: The patient comes in initially with a history of diabetes with altered mental status, recurrent hypoglycemia. Despite treatment by the ER doctor, the patient was admitted for recurrent hypoglycemia, symptomatic, and was altered. He is diabetic. Also complaining of mild headache and some nausea. Denies any vomiting. Denies any respiratory illness. Denies fatigue. Denies congestion. No vomiting, coughing or breathing problems. Denies all of those. Patient admitted for altered mental status and recurrent hypoglycemia. PAST MEDICAL HISTORY: The patient is significant for GERD. He does have history of headaches, hyperlipidemia as well as NIDDM. ALLERGIES: To vancomycin. MEDICATIONS: The patient takes insulin and Lipitor. FAMILY HISTORY: Noncontributory. SOCIAL HISTORY: Denies history of smoking. Denies alcohol or illicit drugs. REVIEW OF SYSTEMS: HEENT: Does have occasional headaches. RESPIRATORY: Denies shortness of breath. Denies cough. CARDIOVASCULAR: Denies chest pain. No orthopnea. GI: Denies nausea, vomiting, or diarrhea. EXTREMITIES: Denies pain. CENTRAL NERVOUS SYSTEM: Reported weakness, presyncope, and confusion multiple times. PHYSICAL EXAMINATION: VITAL SIGNS: Temperature is 97, pulse is 80, and blood pressure 124/83. HEENT: PERRLA. NECK: Supple. No lymphadenopathy. CHEST: Clear to auscultation. CARDIOVASCULAR: Regular rate and rhythm. No murmurs or extra sounds. GASTROINTESTINAL: Soft, nontender, nondistended. No organomegaly. EXTREMITIES: No edema. Reflexes in both sides. Moves all extremities. LABORATORY DATA: WBC of 7.8, hemoglobin 10.1, platelets 226. Sodium 137, potassium 4.8, BUN of 33, creatinine 1.8, glucose of 139. ASSESSMENT AND PLAN: Recurrent hypoglycemia as well as azotemia, acute renal failure. I have consulted Dr. Duvall as well as Dr. Keith to help with the management of hypoglycemia and adjustment of insulin medications as well as to help with azotemia could be due to diabetic nephropathy. Joel Davis M.D. DR: Mary Carmen JOB#: [id number] CC:
[2019-10-31] MEDS: NovoLOG Insulin Flexpen SUBQ SCH ×4 (06:15→20:41)
--- NOTE | 2019-10-31 07:46 | General Progress Note ---
Assessment/Plan Problem List: (1) Poorly controlled diabetes mellitus ICD Codes: E11.9 - Poorly controlled diabetes mellitus SNOMED: 32850808 (2) Hypoglycemia ICD Codes: E16.2 - Hypoglycemia, unspecified SNOMED: 597698378 (3) Diabetic foot ulcer Assessment/Plan: add Levemir 4 units qam Novolog sliding scale ac / hs hypoglycemia protocol Subjective Allergies: Coded Allergies: VANCOMYCIN (Verified Allergy, Unknown, 11/12/16) All Systems: reviewed and negative except above Subjective events noted hypoglycemia resolved glucose values are now elevated Item Value Date Time Bedside Blood Glucose 223 mg/dl H 10/31/19 0630 Bedside Blood Glucose 223 mg/dl H 10/30/19 2100 Bedside Blood Glucose 185 mg/dl H 10/30/19 1707 Bedside Blood Glucose 225 mg/dl H 10/30/19 1204 Bedside Blood Glucose 140 mg/dl H 10/30/19 0620 Objective Last 24 Hour Vital Signs Date Time Temp Pulse Resp B/P (MAP) Pulse Ox O2 Delivery O2 Flow Rate FiO2 10/31/19 04:00 98.0 72 18 125/88 (100) 98 10/31/19 00:00 98.7 76 18 121/81 (94) 96 10/30/19 21:00 Room Air 10/30/19 16:00 97.7 80 18 137/92 (107) 97 10/30/19 12:00 97.5 76 19 124/79 (94) 10/30/19 09:00 Room Air 10/30/19 08:00 97.9 81 20 131/77 (95) 98 Intake and Output 10/30/19 10/31/19 19:00 07:00 Intake Total 1140 ml 50 ml Balance 1140 ml 50 ml Intake Oral 840 ml IV Total 300 ml 50 ml # Voids 2 4 Laboratory Tests 10/30/19 11:50: Urine Color Pale yellow, Urine Appearance Clear, Urine pH 6, Urine Specific [place] 1.020, Urine Protein 4+H, Urine Glucose (UA) 2+H, Urine Ketones Negative , Urine Blood Negative, Urine Nitrite Negative, Urine Bilirubin Negative, Urine Urobilinogen Normal, Urine Leukocyte Esterase Negative, Urine RBC 0, Urine WBC 0 -2, Urine Squamous Epithelial Cells None, Urine Bacteria Few, Urine Random Sodium 70, Stool Occult Blood [Pending], Urine Opiates Screen Negative, Urine Barbiturates Screen Negative, Phencyclidine (PCP) Screen Negative, Urine Amphetamines Screen Negative, Urine Benzodiazepines Screen Negative, Urine Cocaine Screen Negative, Urine Marijuana (THC) Screen Negative Height (Feet): 5 Height (Inches): 4.00 Weight (Pounds): 141 General Appearance: no apparent distress Neck: normal alignment Respiratory/Chest: lungs clear Abdomen: normal bowel sounds Objective Current Medications Medications (Trade) Dose Ordered Sig/Julian Route PRN Reason Start Time Stop Time Status Last Admin Dose Admin Acetaminophen (Tylenol) 650 mg Q4H PRN ORAL Mild Pain (Pain Scale 1-3) 10/29/19 19:00 11/28/19 18:59 10/30/19 10:39 Aspirin (ASA) 81 mg DAILY ORAL 10/31/19 09:00 12/15/19 08:59 Atorvastatin Calcium (Lipitor) 20 mg BEDTIME ORAL 10/30/19 21:00 01/28/20 20:59 10/30/19 21:37 Dextrose (Dextrose 50%) 25 ml Q30M PRN IV Hypoglycemia 10/30/19 07:30 01/28/20 07:29 Dextrose (Dextrose 50%) 50 ml Q30M PRN IV Hypoglycemia 10/30/19 07:30 01/28/20 07:29 Docusate Sodium (Colace) 100 mg THREE TIMES A DAY ORAL 10/30/19 13:00 11/29/19 12:59 10/30/19 13:42 Hydralazine HCl (Apresoline) 25 mg Q4H PRN ORAL bp over 160 syst 10/30/19 11:00 01/28/20 10:59 Insulin Aspart (NovoLOG) BEFORE MEALS AND HS SUBQ 10/30/19 11:30 01/28/20 11:29 10/31/19 06:15 Pantoprazole (Protonix) 40 mg EVERY 12 HOURS ORAL 10/30/19 21:00 11/29/19 20:59 10/30/19 21:37 Sodium Chloride 1,000 ml @ 50 mls/hr Q20H IV 10/30/19 12:00 11/29/19 11:59 10/30/19 12:11 Jaycob Duvall MD Oct 31, 2019 07:46
--- NOTE | 2019-10-31 07:51 | NUR ---
HAND OFF: Report given to DEBORAH Jeronimo. Pt in stable condition.
[2019-10-31 08:00] VITALS: BP 139/95
--- NOTE | 2019-10-31 08:04 | NUR ---
NURSE NOTES: Patient sitting up in bed, awake and alert, no c/o pain, no SOB, in no apparent distress, on room air, bed in lowest position, call light within reach. Urinal at bedside.
--- NOTE | 2019-10-31 08:39 | NUR ---
NURSE NOTES: Patient awake and alert and oriented,respirations unlabored.IV fluids infusing as ordered.Patient ate breakfast,no complaints at thiis time.Bed alalrm talent consultant light within reach.
[2019-10-31] MEDS: Aspirin Baby 81mg ORAL SCH (08:54)
[2019-10-31] MEDS: Docusate 100mg cap ORAL SCH ×3 (09:00→18:00)
[2019-10-31] MEDS ORDERED: Levemir Flexpen SUBQ SCH (09:00)
[2019-10-31 11:08] LABS: BASOPHILS % (AUTO) 2.3 % (0.0-2.0); HEMATOCRIT 28.1 % (42.0-52.0); HEMOGLOBIN 9.7 G/DL (14.2-18.0); LYMPHOCYTES % (AUTO) 29.5 % (20.0-45.0); MEAN CORPUSCULAR VOLUME 85 FL (80-99); MONOCYTES % (AUTO) 5.9 % (1.0-10.0); NEUTROPHILS % (AUTO) 52.3 % (45.0-75.0); PLATELET COUNT 216 K/UL (150-450); RED CELL DISTRIBUTION WIDTH 11.4 % (11.6-14.8); WHITE BLOOD COUNT 4.4 K/UL (4.8-10.8)
[2019-10-31 12:00] VITALS: BP 145/101
--- NOTE | 2019-10-31 13:30 | Nephrology Progress Note ---
Assessment/Plan Problem List: (1) Diabetic nephropathy (2) ARF (acute renal failure) (3) Dehydration (4) Anemia Assessment Encephalopathy most likely secondary to hypoglycemic episode Renal failure likely acute superimposed on chronic renal failure Diabetic nephropathy 4+ proteinuria Anemia Plan Today's labs pending Monitor renal parameters Hydrate as possible Anemia work-up Urine analysis-urine studies Keep the blood pressure and blood sugar in check Per orders Subjective ROS Limited/Unobtainable: No Constitutional: Reports: malaise Objective Objective Last 24 Hour Vital Signs Date Time Temp Pulse Resp B/P (MAP) Pulse Ox O2 Delivery O2 Flow Rate FiO2 10/31/19 09:00 Room Air 10/31/19 08:00 97.7 74 18 139/95 (110) 100 10/31/19 04:00 98.0 72 18 125/88 (100) 98 10/31/19 00:00 98.7 76 18 121/81 (94) 96 10/30/19 21:00 Room Air 10/30/19 16:00 97.7 80 18 137/92 (107) 97 Intake and Output 10/30/19 10/31/19 19:00 07:00 Intake Total 1140 ml 50 ml Balance 1140 ml 50 ml Intake Oral 840 ml IV Total 300 ml 50 ml # Voids 2 4 Laboratory Tests 10/31/19 10:35: White Blood Count 4.4L, Red Blood Count 3.30L, Hemoglobin 9.7L, Hematocrit 28.1L , Mean Corpuscular Volume 85, Mean Corpuscular Hemoglobin 29.3, Mean Corpuscular Hemoglobin Concent 34.4, Red Cell Distribution Width 11.4L, Platelet Count 216, Mean Platelet Volume 5.0L, Neutrophils (%) (Auto) 52.3, Lymphocytes (%) (Auto) 29.5, Monocytes (%) (Auto) 5.9, Eosinophils (%) (Auto) 10.0H, Basophils (%) (Auto) 2.3H Height (Feet): 5 Height (Inches): 4.00 Weight (Pounds): 141 General Appearance: no apparent distress Cardiovascular: normal rate Respiratory/Chest: lungs clear Abdomen: soft Objective No change Emir Keith MD Oct 31, 2019 13:30
[2019-10-31 14:07] LABS: ANION GAP 8 mmol/L (5-15); BLOOD UREA NITROGEN 25 mg/dL (7-18); CALCIUM 8.6 MG/DL (8.5-10.1); CARBON DIOXIDE 24 MMOL/L (21-32); CHLORIDE 103 MMOL/L (98-107); CREATININE 1.8 MG/DL (0.55-1.30); POTASSIUM 4.4 MMOL/L (3.5-5.1); SODIUM 135 MMOL/L (136-145)
[2019-10-31 14:11] LABS: ALANINE AMINOTRANSFERASE 126 U/L (12-78); ALBUMIN 2.8 G/DL (3.4-5.0); ALBUMIN/GLOBULIN RATIO 0.7 (1.0-2.7); ALKALINE PHOSPHATASE 145 U/L (46-116); ASPARTATE AMINO TRANSFERASE 213 U/L (15-37); BILIRUBIN,TOTAL 0.2 MG/DL (0.2-1.0)
[2019-10-31 16:00] VITALS: BP 160/107
--- NOTE | 2019-10-31 16:54 | NUR ---
CASE MANAGEMENT:REVIEW SI;AMS. AC RENAL FAILURE. ANEMIA. 98.7 80 19 145/101 96% ON RA H/H 9.7/28.1 NA 135 BUN 25 CR 1.8 BG 273 AST 213 ALT 126 ALK PHOS 145 ALB 2.8 IS;ASA PO QD PROTONIX PO Q12 HRS IVF NS @ 50 ML/HR HYDRALAZINE PO Q4 HRS PRN MED SURG STATUS DCP;PATIENT IS FROM HOME PLAN;HYDRATE MONITOR RENAL PARAMETERS
--- NOTE | 2019-10-31 18:30 | NUR ---
NURSE NOTES: Patient resting,no complaint at this time,bed alarm on.
--- NOTE | 2019-10-31 19:45 | NUR ---
NURSE NOTES: Pt. received from DEBORAH Street. Pt. AAOx4, on room air, breathing even and unlabored, no complaints of pain at this time. IV L upper arm 20g, intact and patent, running NS 50cc/hr. Pt. ambulatory with nurse observation. Bed is low and locked, side rails x2 up, bed alarm active, and call light is in reach. Will continue to monitor.
[2019-10-31 20:00] VITALS: BP 139/86
--- NOTE | 2019-10-31 20:05 | NUR ---
HAND-OFF: Report given to Francesco CABRERA,aware of fall risk..
[2019-10-31] MEDS: Atorvastatin 20mg tab ORAL SCH (20:40)
--- NOTE | 2019-10-31 21:44 | General Progress Note ---
Assessment/Plan Problem List: (1) Hyperglycemia ICD Codes: R73.9 - Hyperglycemia, unspecified SNOMED: 40389644 (2) Renal insufficiency ICD Codes: N28.9 - Renal insufficiency SNOMED: 815969362 Status: progressing Assessment/Plan: s/p hypoglycemia sugar is elevated now afebrile azotemia diabetic nephropathy Subjective ROS Limited/Unobtainable: Yes Allergies: Coded Allergies: VANCOMYCIN (Verified Allergy, Unknown, 11/12/16) Objective Last 24 Hour Vital Signs Date Time Temp Pulse Resp B/P (MAP) Pulse Ox O2 Delivery O2 Flow Rate FiO2 10/31/19 16:00 98.1 78 160/107 (124) 100 10/31/19 12:00 97.7 80 19 145/101 (116) 100 10/31/19 09:00 Room Air 10/31/19 08:00 97.7 74 18 139/95 (110) 100 10/31/19 04:00 98.0 72 18 125/88 (100) 98 10/31/19 00:00 98.7 76 18 121/81 (94) 96 Intake and Output 10/30/19 10/31/19 19:00 07:00 Intake Total 1140 ml 50 ml Balance 1140 ml 50 ml Intake Oral 840 ml IV Total 300 ml 50 ml # Voids 2 4 Laboratory Tests 10/31/19 10:35: White Blood Count 4.4L, Red Blood Count 3.30L, Hemoglobin 9.7L, Hematocrit 28.1L , Mean Corpuscular Volume 85, Mean Corpuscular Hemoglobin 29.3, Mean Corpuscular Hemoglobin Concent 34.4, Red Cell Distribution Width 11.4L, Platelet Count 216, Mean Platelet Volume 5.0L, Neutrophils (%) (Auto) 52.3, Lymphocytes (%) (Auto) 29.5, Monocytes (%) (Auto) 5.9, Eosinophils (%) (Auto) 10.0H, Basophils (%) (Auto) 2.3H, Sodium Level 135L, Potassium Level 4.4, Chloride Level 103, Carbon Dioxide Level 24, Anion Gap 8, Blood Urea Nitrogen 25H, Creatinine 1.8H, Estimat Glomerular Filtration Rate 39.4, Glucose Level 273 #H, Calcium Level 8.6, Total Bilirubin 0.2, Aspartate Amino Transf (AST/SGOT) 213H, Alanine Aminotransferase (ALT/SGPT) 126H, Alkaline Phosphatase 145H, Total Protein 7.0, Albumin 2.8L, Globulin 4.2, Albumin/Globulin Ratio 0.7L Height (Feet): 5 Height (Inches): 4.00 Weight (Pounds): 141 Cardiovascular: normal rate Respiratory/Chest: lungs clear Abdomen: soft Joel Davis MD Oct 31, 2019 21:44
[2019-11-01] VITALS: BP 125/80
--- NOTE | 2019-11-01 03:00 | NUR ---
NURSE NOTES: Iv inserted right forearm 22g, asymptomatic, intact, patent. NS 50cc/hr.
[2019-11-01 04:00] VITALS: BP 138/86
[2019-11-01] MEDS: NovoLOG Insulin Flexpen SUBQ SCH ×2 (06:21→12:07)
[2019-11-01 07:29] LABS: BASOPHILS % (AUTO) 2.7 % (0.0-2.0); EOSINOPHILS % (AUTO) 8.4 % (0.0-3.0); HEMATOCRIT 28.9 % (42.0-52.0); HEMOGLOBIN 9.9 G/DL (14.2-18.0); MEAN CORPUSCULAR VOLUME 86 FL (80-99); MONOCYTES % (AUTO) 4.5 % (1.0-10.0); NEUTROPHILS % (AUTO) 48.3 % (45.0-75.0); PLATELET COUNT 214 K/UL (150-450); RED BLOOD COUNT 3.35 M/UL (4.70-6.10); RED CELL DISTRIBUTION WIDTH 15.5 % (11.6-14.8); WHITE BLOOD COUNT 5.5 K/UL (4.8-10.8)
--- NOTE | 2019-11-01 07:43 | General Progress Note ---
Assessment/Plan Problem List: (1) Poorly controlled diabetes mellitus ICD Codes: E11.9 - Poorly controlled diabetes mellitus SNOMED: 97291657 (2) Hypoglycemia ICD Codes: E16.2 - Hypoglycemia, unspecified SNOMED: 424129699 (3) Diabetic foot ulcer Status: progressing Assessment/Plan: increase Levemir to 6 units qam add Novolog 3 units ac tid continue Novolog sliding scale ac / hs hypoglycemia protocol Subjective Allergies: Coded Allergies: VANCOMYCIN (Verified Allergy, Unknown, 11/12/16) All Systems: reviewed and negative except above Subjective events noted hypoglycemia resolved glucose values are now elevated Item Value Date Time Bedside Blood Glucose 130 mg/dl H 11/01/19 0630 Bedside Blood Glucose 242 mg/dl H 10/31/19 2100 Bedside Blood Glucose 259 mg/dl H 10/31/19 1657 Bedside Blood Glucose 228 mg/dl H 10/31/19 1215 Bedside Blood Glucose 236 mg/dl H 10/31/19 1054 Bedside Blood Glucose 223 mg/dl H 10/31/19 0630 Objective Last 24 Hour Vital Signs Date Time Temp Pulse Resp B/P (MAP) Pulse Ox O2 Delivery O2 Flow Rate FiO2 11/01/19 04:00 98.1 72 20 138/86 (103) 98 11/01/19 00:00 98.3 77 20 125/80 (95) 99 10/31/19 21:00 Room Air 10/31/19 20:00 97.5 79 20 139/86 (103) 95 10/31/19 16:00 98.1 78 160/107 (124) 100 10/31/19 12:00 97.7 80 19 145/101 (116) 100 10/31/19 09:00 Room Air 10/31/19 08:00 97.7 74 18 139/95 (110) 100 Intake and Output 10/31/19 11/01/19 19:00 07:00 Intake Total 1400 ml 400 ml Output Total 400 ml Balance 1400 ml 0 ml Intake Oral 850 ml IV Total 550 ml Other 400 ml Output Urine Total 400 ml # Voids 4 # Bowel Movements 1 Laboratory Tests 10/31/19 10:35: White Blood Count 4.4L, Red Blood Count 3.30L, Hemoglobin 9.7L, Hematocrit 28.1L , Mean Corpuscular Volume 85, Mean Corpuscular Hemoglobin 29.3, Mean Corpuscular Hemoglobin Concent 34.4, Red Cell Distribution Width 11.4L, Platelet Count 216, Mean Platelet Volume 5.0L, Neutrophils (%) (Auto) 52.3, Lymphocytes (%) (Auto) 29.5, Monocytes (%) (Auto) 5.9, Eosinophils (%) (Auto) 10.0H, Basophils (%) (Auto) 2.3H, Sodium Level 135L, Potassium Level 4.4, Chloride Level 103, Carbon Dioxide Level 24, Anion Gap 8, Blood Urea Nitrogen 25H, Creatinine 1.8H, Estimat Glomerular Filtration Rate 39.4, Glucose Level 273 #H, Calcium Level 8.6, Total Bilirubin 0.2, Aspartate Amino Transf (AST/SGOT) 213H, Alanine Aminotransferase (ALT/SGPT) 126H, Alkaline Phosphatase 145H, Total Protein 7.0, Albumin 2.8L, Globulin 4.2, Albumin/Globulin Ratio 0.7L 11/01/19 05:15: White Blood Count 5.5, Red Blood Count 3.35L, Hemoglobin 9.9L, Hematocrit 28.9L , Mean Corpuscular Volume 86, Mean Corpuscular Hemoglobin 29.5, Mean Corpuscular Hemoglobin Concent 34.1, Red Cell Distribution Width 15.5H, Platelet Count 214, Mean Platelet Volume 6.4L, Neutrophils (%) (Auto) 48.3, Lymphocytes (%) (Auto) 36.0, Monocytes (%) (Auto) 4.5, Eosinophils (%) (Auto) 8.4H, Basophils (%) (Auto) 2.7H Height (Feet): 5 Height (Inches): 4.00 Weight (Pounds): 141 General Appearance: no apparent distress Neck: normal alignment Cardiovascular: normal rate Respiratory/Chest: lungs clear Abdomen: normal bowel sounds Objective Current Medications Medications (Trade) Dose Ordered Sig/Julian Route PRN Reason Start Time Stop Time Status Last Admin Dose Admin Acetaminophen (Tylenol) 650 mg Q4H PRN ORAL Mild Pain (Pain Scale 1-3) 10/29/19 19:00 11/28/19 18:59 10/30/19 10:39 Aspirin (ASA) 81 mg DAILY ORAL 10/31/19 09:00 12/15/19 08:59 10/31/19 08:54 Atorvastatin Calcium (Lipitor) 20 mg BEDTIME ORAL 10/30/19 21:00 01/28/20 20:59 10/31/19 20:40 Dextrose (Dextrose 50%) 25 ml Q30M PRN IV Hypoglycemia 10/30/19 07:30 01/28/20 07:29 Dextrose (Dextrose 50%) 50 ml Q30M PRN IV Hypoglycemia 10/30/19 07:30 01/28/20 07:29 Docusate Sodium (Colace) 100 mg THREE TIMES A DAY ORAL 10/30/19 13:00 11/29/19 12:59 10/30/19 13:42 Hydralazine HCl (Apresoline) 25 mg Q4H PRN ORAL bp over 160 syst 10/30/19 11:00 01/28/20 10:59 Insulin Aspart (NovoLOG) BEFORE MEALS AND HS SUBQ 10/30/19 11:30 01/28/20 11:29 10/31/19 20:41 Insulin Detemir (Levemir) 4 units DAILY SUBQ 10/31/19 09:00 01/29/20 08:59 10/31/19 10:54 Pantoprazole (Protonix) 40 mg EVERY 12 HOURS ORAL 10/30/19 21:00 11/29/19 20:59 10/31/19 20:40 Sodium Chloride 1,000 ml @ 50 mls/hr Q20H IV 10/30/19 12:00 11/29/19 11:59 11/01/19 04:07 Jaycob Duvall MD Nov 01, 2019 07:43
--- NOTE | 2019-11-01 07:57 | NUR ---
NURSE NOTES: Patient seen on rounds, AxOx4, not in distress, no complaints of pain. Report good PO intake for breakfast, last accucheck in AM 130mg/dl. PIV on right forearm intact and infusing IVF as ordered. Bed low and locked, alarms on zone 1, siderails up x2, call light within reach. Instructed patient to call nurse for assistance. Will continue to monitor.
[2019-11-01 08:00] VITALS: BP 119/86
--- NOTE | 2019-11-01 08:11 | NUR ---
HAND-OFF: Report given to DEBORAH Coughlin.
[2019-11-01] MEDS: Docusate 100mg cap ORAL SCH ×2 (08:49→13:58)
[2019-11-01] MEDS: Aspirin Baby 81mg ORAL SCH (08:49)
[2019-11-01] MEDS ORDERED: Levemir Flexpen SUBQ SCH (09:00)
--- NOTE | 2019-11-01 10:34 | NUR ---
DISCHARGE PLANNING PER DR HERRERA, REFER PATIENT TO [facility]. NOTED AND CARRIED OUT. INQUIRY FAXED. [facility] P: [phone] F: [phone]
--- NOTE | 2019-11-01 11:02 | Hematology/Onc Progress Note ---
Assessment/Plan Assessment/Plan Assessment and Recs # Anemia of chronic disease due to underlying chronic medical issues, multifactorial v Gi bleed --> Anemia workup has been ordered, rule out gi bleed --> No evidence of hemolysis is noted, peripheral smear has been reviewed. --> Hgb goal >7. Transfuse prn. --> Epogen or iron at this time is not particularly indicated --> Medications have been reviewed --> low threshold for gi evaluation in case has occult + --> bone marrow biopsy is not indicated given the other more likely causes --> hgb trend 9.9 # Altered level of consciousness --> likely related to hypoglecmia --> meds changed as per endo # Hypoglycemia --> d5 w as needed, with insulin # Acute kidney injury --> cr 1.9-->1.8 --> on ivfs as needed # Dvt ppx scds The timing of this note does not necessarily reflect the time of the patient was seen. Greatly appreciate consultation. Subjective HEENT: Denies: no symptoms, eye pain, blurred vision, tearing, double vision, ear pain, ear discharge, nose pain, nose congestion, throat pain, throat swelling, mouth pain, mouth swelling, other Cardiovascular: Denies: no symptoms, chest pain, edema, irregular heart rate, lightheadedness, palpitations, syncope, other Respiratory: Denies: no symptoms, cough, shortness of breath, SOB with excertion, SOB at rest, sputum, wheezing, other Gastrointestinal/Abdominal: Denies: no symptoms, abdomen distended, abdominal pain, black stools, tarry stools, blood in stool, constipated, diarrhea, difficulty swallowing, nausea, poor appetite, poor fluid intake, rectal bleeding , vomiting, other Genitourinary: Denies: no symptoms, burning, discharge, frequency, flank pain, hematuria, incontinence, pain, urgency, other Neurologic/Psychiatric: Denies: no symptoms, anxiety, depressed, emotional problems, headache, numbness, paresthesia, pre-existing deficit, seizure, tingling, tremors, weakness, other Hematologic/Lymphatic: Denies: no symptoms, anemia, easy bleeding, easy bruising, adenopathy, other Allergies: Coded Allergies: VANCOMYCIN (Verified Allergy, Unknown, 11/12/16) Subjective 10/31 no major changes, labs reviewed, dw rn, no bleeding Objective Objective Current Medications Medications (Trade) Dose Ordered Sig/Julian Route PRN Reason Start Time Stop Time Status Last Admin Dose Admin Acetaminophen (Tylenol) 650 mg Q4H PRN ORAL Mild Pain (Pain Scale 1-3) 10/29/19 19:00 11/28/19 18:59 10/30/19 10:39 Aspirin (ASA) 81 mg DAILY ORAL 10/31/19 09:00 12/15/19 08:59 11/01/19 08:49 Atorvastatin Calcium (Lipitor) 20 mg BEDTIME ORAL 10/30/19 21:00 01/28/20 20:59 10/31/19 20:40 Dextrose (Dextrose 50%) 25 ml Q30M PRN IV Hypoglycemia 11/01/19 07:45 01/30/20 07:44 Dextrose (Dextrose 50%) 50 ml Q30M PRN IV Hypoglycemia 11/01/19 07:45 01/30/20 07:44 Docusate Sodium (Colace) 100 mg THREE TIMES A DAY ORAL 10/30/19 13:00 11/29/19 12:59 11/01/19 08:49 Hydralazine HCl (Apresoline) 25 mg Q4H PRN ORAL bp over 160 syst 10/30/19 11:00 01/28/20 10:59 Insulin Aspart (NovoLOG) BEFORE MEALS AND HS SUBQ 10/30/19 11:30 01/28/20 11:29 10/31/19 20:41 Insulin Aspart (NovoLOG) 3 units NOVOTIAC SUBQ 11/01/19 11:50 01/30/20 11:49 Insulin Detemir (Levemir) 6 units DAILY SUBQ 11/01/19 09:00 01/29/20 08:59 11/01/19 08:51 Pantoprazole (Protonix) 40 mg EVERY 12 HOURS ORAL 10/30/19 21:00 11/29/19 20:59 11/01/19 08:49 Sodium Chloride 1,000 ml @ 50 mls/hr Q20H IV 10/30/19 12:00 11/29/19 11:59 11/01/19 04:07 Last 24 Hour Vital Signs Date Time Temp Pulse Resp B/P (MAP) Pulse Ox O2 Delivery O2 Flow Rate FiO2 11/01/19 09:00 Room Air 11/01/19 08:00 97.0 78 20 119/86 (97) 98 11/01/19 04:00 98.1 72 20 138/86 (103) 98 11/01/19 00:00 98.3 77 20 125/80 (95) 99 10/31/19 21:00 Room Air 10/31/19 20:00 97.5 79 20 139/86 (103) 95 10/31/19 16:00 98.1 78 160/107 (124) 100 10/31/19 12:00 97.7 80 19 145/101 (116) 100 10/31/19 09:00 Room Air 10/31/19 08:00 97.7 74 18 139/95 (110) 100 10/31/19 04:00 98.0 72 18 125/88 (100) 98 10/31/19 00:00 98.7 76 18 121/81 (94) 96 10/30/19 21:00 Room Air 10/30/19 16:00 97.7 80 18 137/92 (107) 97 10/30/19 12:00 97.5 76 19 124/79 (94) Intake and Output 10/31/19 11/01/19 19:00 07:00 Intake Total 1400 ml 400 ml Output Total 400 ml Balance 1400 ml 0 ml Intake Oral 850 ml IV Total 550 ml Other 400 ml Output Urine Total 400 ml # Voids 4 # Bowel Movements 1 Labs Test 10/29/19 14:00 10/30/19 05:25 10/30/19 05:45 10/30/19 11:50 White Blood Count 7.8 K/UL (4.8-10.8) 7.9 K/UL (4.8-10.8) Red Blood Count 3.35 M/UL (4.70-6.10) 3.39 M/UL (4.70-6.10) Hemoglobin 10.1 G/DL (14.2-18.0) 10.0 G/DL (14.2-18.0) Hematocrit 28.9 % (42.0-52.0) 28.8 % (42.0-52.0) Mean Corpuscular Volume 86 FL (80-99) 85 FL (80-99) Mean Corpuscular Hemoglobin 30.1 PG (27.0-31.0) 29.5 PG (27.0-31.0) Mean Corpuscular Hemoglobin Concent 34.8 G/DL (32.0-36.0) 34.7 G/DL (32.0-36.0) Red Cell Distribution Width 11.6 % (11.6-14.8) 11.7 % (11.6-14.8) Platelet Count 226 K/UL (150-450) 228 K/UL (150-450) Mean Platelet Volume 5.1 FL (6.5-10.1) 5.7 FL (6.5-10.1) Neutrophils (%) (Auto) 56.4 % (45.0-75.0) 64.8 % (45.0-75.0) Lymphocytes (%) (Auto) 28.2 % (20.0-45.0) 22.4 % (20.0-45.0) Monocytes (%) (Auto) 6.2 % (1.0-10.0) 5.3 % (1.0-10.0) Eosinophils (%) (Auto) 7.2 % (0.0-3.0) 5.6 % (0.0-3.0) Basophils (%) (Auto) 2.0 % (0.0-2.0) 1.9 % (0.0-2.0) Sodium Level 139 MMOL/L (136-145) 137 MMOL/L (136-145) Potassium Level 3.5 MMOL/L (3.5-5.1) 4.8 MMOL/L (3.5-5.1) Chloride Level 107 MMOL/L (98-107) 105 MMOL/L (98-107) Carbon Dioxide Level 21 MMOL/L (21-32) 23 MMOL/L (21-32) Anion Gap 11 mmol/L (5-15) 9 mmol/L (5-15) Blood Urea Nitrogen 40 mg/dL (7-18) 33 mg/dL (7-18) Creatinine 1.9 MG/DL (0.55-1.30) 1.8 MG/DL (0.55-1.30) Estimat Glomerular Filtration Rate 37.0 mL/min (>60) 39.4 mL/min (>60) Glucose Level 29 MG/DL (74-106) 139 MG/DL (74-106) Calcium Level 9.5 MG/DL (8.5-10.1) 8.6 MG/DL (8.5-10.1) Total Bilirubin 0.3 MG/DL (0.2-1.0) 0.3 MG/DL (0.2-1.0) Aspartate Amino Transf (AST/SGOT) 52 U/L (15-37) 59 U/L (15-37) Alanine Aminotransferase (ALT/SGPT) 40 U/L (12-78) 43 U/L (12-78) Alkaline Phosphatase 163 U/L (46-116) 147 U/L (46-116) Ammonia 27 umol/L (11-32) Total Protein 7.8 G/DL (6.4-8.2) 7.0 G/DL (6.4-8.2) Albumin 3.5 G/DL (3.4-5.0) 3.0 G/DL (3.4-5.0) Globulin 4.3 g/dL 4.0 g/dL Albumin/Globulin Ratio 0.8 (1.0-2.7) 0.8 (1.0-2.7) Thyroid Stimulating Hormone (TSH) 3.614 uiU/mL (0.358-3.740) Salicylates Level 0.9 ug/mL (2.8-20) Acetaminophen Level < 2 MCG/ML (10-30) Serum Alcohol < 3 mg/dL Differential Total Cells Counted 100 Neutrophils % (Manual) 60 % (45-75) Lymphocytes % (Manual) 27 % (20-45) Monocytes % (Manual) 5 % (1-10) Eosinophils % (Manual) 7 % (0-3) Basophils % (Manual) 1 % (0-2) Band Neutrophils 0 % (0-8) Other Cell Type Pathologist comment Platelet Estimate Adequate Platelet Morphology Normal Hypochromasia 1+ Hemoglobin A1c 8.0 % (4.3-6.0) Triglycerides Level 151 MG/DL (30-150) Cholesterol Level 153 MG/DL (< 200) LDL Cholesterol 74 mg/dL (<100) HDL Cholesterol 54 MG/DL (40-60) Cholesterol/HDL Ratio 2.8 (3.3-4.4) Folate 12.1 NG/ML (8.6-58.9) Reticulocyte Count 0.5 % (0.5-2.0) Sickle Cell Screen Negative (Negative) Iron Level 31 ug/dL (50-175) Total Iron Binding Capacity 167 ug/dL (250-450) Percent Iron Saturation 19 % (15-50) Unsaturated Iron Binding 136 ug/dL (112-346) Ferritin 171 NG/ML (8-388) Carcinoembryonic Antigen 3.9 ng/mL (0.0-4.7) Vitamin B12 Level 429 PG/ML (193-986) Urine Color Pale yellow Urine Appearance Clear Urine pH 6 (4.5-8.0) Urine Specific [place] 1.020 (1.005-1.035) Urine Protein 4+ (NEGATIVE) Urine Glucose (UA) 2+ (NEGATIVE) Urine Ketones Negative (NEGATIVE) Urine Blood Negative (NEGATIVE) Urine Nitrite Negative (NEGATIVE) Urine Bilirubin Negative (NEGATIVE) Urine Urobilinogen Normal MG/DL (0.0-1.0) Urine Leukocyte Esterase Negative (NEGATIVE) Urine RBC 0 /HPF (0 - 0) Urine WBC 0-2 /HPF (0 - 0) Urine Squamous Epithelial Cells None /LPF (NONE/OCC) Urine Bacteria Few /HPF (NONE) Urine Random Sodium 70 mmol/L (20-110) Urine Opiates Screen Negative (NEGATIVE) Urine Barbiturates Screen Negative (NEGATIVE) Phencyclidine (PCP) Screen Negative (NEGATIVE) Urine Amphetamines Screen Negative (NEGATIVE) Urine Benzodiazepines Screen Negative (NEGATIVE) Urine Cocaine Screen Negative (NEGATIVE) Urine Marijuana (THC) Screen Negative (NEGATIVE) Test 10/31/19 10:35 11/01/19 05:15 White Blood Count 4.4 K/UL (4.8-10.8) 5.5 K/UL (4.8-10.8) Red Blood Count 3.30 M/UL (4.70-6.10) 3.35 M/UL (4.70-6.10) Hemoglobin 9.7 G/DL (14.2-18.0) 9.9 G/DL (14.2-18.0) Hematocrit 28.1 % (42.0-52.0) 28.9 % (42.0-52.0) Mean Corpuscular Volume 85 FL (80-99) 86 FL (80-99) Mean Corpuscular Hemoglobin 29.3 PG (27.0-31.0) 29.5 PG (27.0-31.0) Mean Corpuscular Hemoglobin Concent 34.4 G/DL (32.0-36.0) 34.1 G/DL (32.0-36.0) Red Cell Distribution Width 11.4 % (11.6-14.8) 15.5 % (11.6-14.8) Platelet Count 216 K/UL (150-450) 214 K/UL (150-450) Mean Platelet Volume 5.0 FL (6.5-10.1) 6.4 FL (6.5-10.1) Neutrophils (%) (Auto) 52.3 % (45.0-75.0) 48.3 % (45.0-75.0) Lymphocytes (%) (Auto) 29.5 % (20.0-45.0) 36.0 % (20.0-45.0) Monocytes (%) (Auto) 5.9 % (1.0-10.0) 4.5 % (1.0-10.0) Eosinophils (%) (Auto) 10.0 % (0.0-3.0) 8.4 % (0.0-3.0) Basophils (%) (Auto) 2.3 % (0.0-2.0) 2.7 % (0.0-2.0) Sodium Level 135 MMOL/L (136-145) Potassium Level 4.4 MMOL/L (3.5-5.1) Chloride Level 103 MMOL/L (98-107) Carbon Dioxide Level 24 MMOL/L (21-32) Anion Gap 8 mmol/L (5-15) Blood Urea Nitrogen 25 mg/dL (7-18) Creatinine 1.8 MG/DL (0.55-1.30) Estimat Glomerular Filtration Rate 39.4 mL/min (>60) Glucose Level 273 MG/DL (74-106) Calcium Level 8.6 MG/DL (8.5-10.1) Total Bilirubin 0.2 MG/DL (0.2-1.0) Aspartate Amino Transf (AST/SGOT) 213 U/L (15-37) Alanine Aminotransferase (ALT/SGPT) 126 U/L (12-78) Alkaline Phosphatase 145 U/L (46-116) Total Protein 7.0 G/DL (6.4-8.2) Albumin 2.8 G/DL (3.4-5.0) Globulin 4.2 g/dL Albumin/Globulin Ratio 0.7 (1.0-2.7) Height (Feet): 5 Height (Inches): 4.00 Weight (Pounds): 141 Objective Physical Exam: Vitals: reviewed General: NAD HEENT: nc, at Neck: supple Chest: clear breath sounds bilaterally Cardiovascular: RRR, no s3, s4 Abdomen: soft, nontender, nd Extremities: no cce, normal range of motion Neuro: alert and oriented today Tobi Matthews MD Nov 01, 2019 11:02
--- NOTE | 2019-11-01 11:45 | Nephrology Progress Note ---
Assessment/Plan Problem List: (1) Diabetic nephropathy (2) ARF (acute renal failure) (3) Dehydration (4) Anemia Assessment Encephalopathy most likely secondary to hypoglycemic episode Renal failure likely acute superimposed on chronic renal failure Diabetic nephropathy 4+ proteinuria Anemia Plan Discontinue Lipitor as LFTs are rising Check labs tomorrow Monitor renal parameters Hydrate as possible Anemia work-up Urine analysis-urine studies Keep the blood pressure and blood sugar in check Per orders Subjective ROS Limited/Unobtainable: No Constitutional: Reports: malaise Objective Objective Last 24 Hour Vital Signs Date Time Temp Pulse Resp B/P (MAP) Pulse Ox O2 Delivery O2 Flow Rate FiO2 11/01/19 09:00 Room Air 11/01/19 08:00 97.0 78 20 119/86 (97) 98 11/01/19 04:00 98.1 72 20 138/86 (103) 98 11/01/19 00:00 98.3 77 20 125/80 (95) 99 10/31/19 21:00 Room Air 10/31/19 20:00 97.5 79 20 139/86 (103) 95 10/31/19 16:00 98.1 78 160/107 (124) 100 10/31/19 12:00 97.7 80 19 145/101 (116) 100 Intake and Output 10/31/19 11/01/19 19:00 07:00 Intake Total 1400 ml 400 ml Output Total 400 ml Balance 1400 ml 0 ml Intake Oral 850 ml IV Total 550 ml Other 400 ml Output Urine Total 400 ml # Voids 4 # Bowel Movements 1 Laboratory Tests 11/01/19 05:15: White Blood Count 5.5, Red Blood Count 3.35L, Hemoglobin 9.9L, Hematocrit 28.9L , Mean Corpuscular Volume 86, Mean Corpuscular Hemoglobin 29.5, Mean Corpuscular Hemoglobin Concent 34.1, Red Cell Distribution Width 15.5H, Platelet Count 214, Mean Platelet Volume 6.4L, Neutrophils (%) (Auto) 48.3, Lymphocytes (%) (Auto) 36.0, Monocytes (%) (Auto) 4.5, Eosinophils (%) (Auto) 8.4H, Basophils (%) (Auto) 2.7H No chemistry panel drawn today Height (Feet): 5 Height (Inches): 4.00 Weight (Pounds): 141 General Appearance: no apparent distress Objective No change Emir Keith MD Nov 01, 2019 11:45
[2019-11-01] MEDS ORDERED: NovoLOG Insulin Flexpen SUBQ SCH (11:50)
[2019-11-01 12:00] VITALS: BP 124/86
--- NOTE | 2019-11-01 13:06 | NUR ---
*-*DISCHARGE PLANNING*-* PATIENT HAS BEEN REFERRED TO: [facility] [place] P: [phone] F: [phone] Addendum: 11/01/19 at 1343 by DAMON DAVILA CM *-*DISCHARGE PLANNED*-* PATIENT HAS BEEN ACCEPTED WITH: [facility] [place] P: [phone] S/W PRIYANK, WHO STATED THEY WILL SERVICE PATIENT UPON DISCHARGE
--- NOTE | 2019-11-01 15:46 | NUR ---
NURSE NOTES: Patient discharged home with home health services. AxOx4, not in distress, no complaints of pain. Vitals and blood sugars stable prior to discharge. Patient has some dryness on bilateral lower extremities, otherwise skin is intact. All discharge instructions and medications discussed with patient, who verbalized understanding. Patient advised to followup with primary MD and washer repairman for prescription refills. Belongings accounted for and signed. Patient left in private vehicle accompanied by daughter at 3:40pm.
--- NOTE | 2019-11-03 12:07 | Discharge Summary ---
Discharge Summary Discharge Summary _ DATE OF ADMISSION: 10/29/2019 DATE OF DISCHARGE: 11/01/2019 DISCHARGED BY: Dr. Joel Lazaro CONSULTANTS: Dr. Emir Duvall BRIEF HOSPITAL COURSE: Patient is a 54-year-old male, with history of diabetes, presented to ED due to altered mental status. EMS arrived at patient's home, blood glucose check was less than 20. He was given D10 which improved his sugar. On arrival to ED, patient remained somnolent, confused although awake and responsive. Repeat fingerstick showed blood glucose of 24. He was given D50 which improved his mentation. According to the patient, his morning blood sugar reading was 120. He self administered 20 units of Lantus as he usually does and had a cup of coffee for breakfast. He did not eat anything for dinner the previous day. Upon work-up, blood work did not show any leukocytosis. Hemoglobin 10, hematocrit 29. Creatinine was elevated to 1.9. BUN 40. Glucose level was 29. Ammonia normal. Thyroid function normal. Urine toxicology screen was negative. Serum alcohol, acetaminophen and salicylate negative. Glucose level continue to drop despite drinking orange juice. He was given another dose of D50. He was then admitted for evaluation of altered mental status and hypoglycemia, with acute kidney injury. He was admitted to medical floor. Blood glucose was monitored. He was given regular diet. He was given IV hydration. Register Of Deeds was consulted. Glucose levels were monitored. Initially he was placed on NovoLog sliding scale. Hypoglycemia resolved and glucose were elevated. He was given Levemir 4 units every morning. Buyer Assistant was consulted. Urinalysis showed 4+ proteinuria. Patient likely with chronic renal failure superimposed acute kidney injury. He was continued on IV for hydration. Glucose levels were elevated. Levemir was increased to 6 units every morning. He was given NovoLog 3 units AC 3 times daily. Hemoglobin A1c 8.0. He presented with anemia, but stable. He did not require any blood transfusion. Bone marrow biopsy not indicated. Stool OB was negative. Liver function tests were rising. Lipitor was discontinued. Blood glucose was stable. Hypoglycemia resolved. Patient was eventually cleared for discharge home. To follow-up as outpatient. FINAL DIAGNOSES: Acute encephalopathy due to hypoglycemia Diabetes mellitus [id number] Acute on chronic renal failure Dehydration Anemia of chronic disease due to underlying chronic medical issue Diabetic nephropathy DISPOSITION: Home with home health DISCHARGE MEDICATIONS: Refer to Discharge Medication List. DISCHARGE INSTRUCTIONS: Follow-up in a week. I have been assigned to complete a discharge summary on this account, I was not involved with the patient's management.--MARIALUISA Alfaro Jacqueline Robles NP Nov 03, 2019 12:07
== END 2019-11-01 15:42 | disposition home or self-care (01) | DRG 637 ==
LOC: EDBD 13:45 → EMR 14:20 → 4E 14:26 → EDBEDREQSVC 15:29 → EDBEDREQ 16:06
DX: E11.649 Type 2 diabetes mellitus with hypoglycemia without coma (principal); G93.41 Metabolic encephalopathy; N17.9 Acute kidney failure, unspecified; E11.22 Type 2 diabetes mellitus with diabetic chronic kidney disease; N18.9 Chronic kidney disease, unspecified; E11.621 Type 2 diabetes mellitus with foot ulcer; E86.0 Dehydration; D63.8 Anemia in other chronic diseases classified elsewhere; Z88.1 Allergy status to other antibiotic agents; Z79.4 Long term (current) use of insulin
CPT/HCPCS: 36415; 80053; 80061; 80307; 81001; 82140; 82270; 82378; 82607; 82728; 82746; 83036; 83540; 83550; 84206; 84300; 84443; 85007; 85025; 85044; 85060; 85660; 93970; 96374; 96376; 99285; G0480; J1815; S5561